=== PATIENT | female | born 1950 | race Caucasian/White ===

== ENCOUNTER → 2017-12-22 | Outpatient (CLI) | payer MEDICARE ==
--- NOTE | 2017-12-22 15:02 | US ---
EXAMINATION TYPE: US thyroid st tissue head/neck DATE OF EXAM: 12/22/2017 COMPARISON: 01/07/2016 CLINICAL HISTORY: E04.1 Thyroid Nodule. GLAND SIZE: Right Lobe: 4.9 x 1.7 x 1.7cm Overall Parenchyma: homogenous Left Lobe: 5.0 x 2.0 x 2.0 cm Overall Parenchyma: homogeneous Isthmus Thickness: 0.2 cm NODULES RIGHT: # of nodules measured on right: 1 1. 0.9 X 0.8 x 0.7 cm echogenic solid nodule at the lower pole with well-defined margins; . This n odule is taller than wide and shows no intranodular vascularity. Prior size: 0.7 x 0.6 x 0.6 cm LEFT: # of nodules measured on left: 1 1. 2.3 X 1.8 x 1.9 cm hypoechoic solid nodule at the mid pole with well-defined margins; . This no dule is wider than tall and shows intranodular vascularity. Prior size: 2.4 x 1.6 x 1.7 cm ISTHMUS: # of nodules measured in the isthmus: 0 Bilateral neck scanned, no evidence of lymphadenopathy. IMPRESSION: Stable nonspecific thyroid nodularity.
== END | disposition home or self-care (01) ==
LOC: RADUSWWP 14:17
PROVIDERS: ATTEND Family Medicine
DX: E04.2 Nontoxic multinodular goiter (principal)
CPT/HCPCS: 76536

== ENCOUNTER → 2018-01-17 | Outpatient (CLI) | payer MEDICARE | END | disposition home or self-care (01) | LOC: LABWHC1 11:58 | PROVIDERS: ATTEND Otolaryngology | DX: E04.1 Nontoxic single thyroid nodule (principal) | CPT/HCPCS: 36415; 84439; 86376 ==

== ENCOUNTER 2018-03-31 11:57 | Day surgery (SDC) | payer MEDICARE ==
[2018-03-31 12:25] VITALS: TEMP 97.7
[2018-03-31 13:08] VITALS: BP 123/69; PULSE 58; RESP 18
--- NOTE | 2018-03-31 13:34 | US ---
ULTRASOUND GUIDED FNA THYROID BIOPSY: CLINICAL HISTORY: Left thyroid nodule FINDINGS: The procedure was explained to the patient. The risks, complications, benefits and alternatives were discussed and any questions were answered. Informed consent was obtained. Patient was placed supin e on the ultrasound table and prepped and draped in the usual sterile fashion. Utilizing a 25 gauge needle, five passes were made into the requested left thyroid nodule. Patient was stable throughout the procedure. Pathology is pending. All elements of maximal barrier technique were utilized. IMPRESSION: 1. Successful ultrasound guided FNA thyroid biopsy.
== END 2018-03-31 13:15 | disposition home or self-care (01) ==
LOC: RADPROMAIN 11:57
PROVIDERS: ATTEND Otolaryngology
DX: E04.1 Nontoxic single thyroid nodule (principal)
CPT/HCPCS: 10022; 76942; 88173; 88305

== ENCOUNTER → 2018-10-06 | Outpatient (CLI) | payer MEDICARE ==
--- NOTE | 2018-10-06 14:21 | MR ---
EXAMINATION TYPE: MR knee RT wo con DATE OF EXAM: 10/06/2018 COMPARISON: NONE HISTORY: Pain in right knee per order. Pain and swelling since mid June per patient. TECHNIQUE: Multiplanar, multisequence images of the knee is performed without IV contrast. FINDINGS: Posterior horn shows oblique increased signal extends to inferior articular surface sagittal image 9 MEDIAL MENISCUS: Anterior horn is intact without tear. LATERAL MENISCUS: Anterior and posterior horns are intact without tear. CRUCIATE LIGAMENTS: The anterior and posterior cruciate ligaments are intact and unremarkable. COLLATERAL LIGAMENTS: The medial collateral ligament and lateral collateral ligament complex are inta ct. Mild increased fluid signal surrounds medial collateral ligament mid to distal fibers coronal claude ge 17. EXTENSOR MECHANISM: Visualized quadriceps and patellar tendons are intact. EFFUSION: No significant suprapatellar joint effusion. POPLITEAL CYST: There is small popliteal/flynn cyst axial image 9. TRICOMPARTMENT SPACES: Mild to moderate narrowing medial lateral tibiofemoral compartment is present. No significant spurring is seen. CARTILAGE: Some thinning of articular cartilage medial tibiofemoral compartment is noted. BONE MARROW SIGNAL: No focal abnormal marrow signal is appreciated. OTHER: No additional significant abnormality is appreciated. IMPRESSION: 1. Full-thickness tear posterior horn of medial meniscus. 2. Mild MCL sprain injury. 3. Mild to moderate tricompartment degenerative changes most prominent medial tibiofemoral compartmen t presumed product of osteoarthritis. 4. Small popliteal cyst.
== END | disposition home or self-care (01) ==
LOC: RADMRIMAIN 13:24
PROVIDERS: ATTEND Orthopaedic Surgery
DX: S83.241A Other tear of medial meniscus, current injury, right knee, initial encounter (principal); S83.411A Sprain of medial collateral ligament of right knee, initial encounter; M71.21 Synovial cyst of popliteal space [Baker], right knee; M17.11 Unilateral primary osteoarthritis, right knee

== ENCOUNTER → 2018-10-13 | Outpatient (CLI) | payer MEDICARE ==
[2018-10-13 10:45] LABS: Blood Urea Nitrogen 23 mg/dL (7-17)
--- NOTE | 2018-10-13 13:07 | CT ---
EXAMINATION TYPE: CT abdomen pelvis w con DATE OF EXAM: 10/13/2018 COMPARISON: Ultrasound 816 HISTORY: Unspecified abdominal pain CT DLP: 1467 mGycm Automated exposure control for dose reduction was used. CONTRAST: CT scan of the abdomen pelvis is performed with IV Contrast, patient injected with 100 ml mL of Isovu e 300. FINDINGS- LUNG BASES-lung bases are clear. Heart size is prominent.. LIVER/GB-there are multiple hypodensities within the liver the largest is seen within the left lobe o f the liver measuring 4.2 cm and 4 Hounsfield units compatible simple cysts. No obvious gallstones.. PANCREAS- No gross abnormality is seen. SPLEEN- No gross abnormality is seen. ADRENALS- No gross abnormality is seen. KIDNEYS/BLADDER- no hydronephrosis nephrolithiasis or renal mass. BOWEL-bowel gas pattern nonspecific. Within the gastric fundus on the sagittal and axial views there appears to be a hyperdense structure which is contiguous with the stomach suggestive of a gastric div erticulum measuring 1.7 cm.. LYMPH NODES- No greater than 1cm abdominal or pelvic lymph nodes areappreciated. OSSEOUS STRUCTURES-hypertrophic and degenerative changes of vertebral column.. OTHER- fat-containing periumbilical hernia. No free fluid or free air. IMPRESSION- 1. Small gastric fundal diverticulum. 2. Hepatic simple appearing cysts 3. Fat-containing periumbilical hernia
== END | disposition home or self-care (01) ==
LOC: RADCTMAIN 09:38
PROVIDERS: ATTEND Family Medicine
DX: K31.4 Gastric diverticulum (principal); K76.89 Other specified diseases of liver; K42.9 Umbilical hernia without obstruction or gangrene; R14.0 Abdominal distension (gaseous); K21.9 Gastro-esophageal reflux disease without esophagitis
CPT/HCPCS: 82565; 84520; 74177; 36415; Q9967 ×2

== ENCOUNTER 2018-11-17 10:43 | Day surgery (SDC) | payer MEDICARE ==
[2018-11-13 15:27] VITALS: BMI 31.1
--- NOTE | 2018-11-16 09:01 | HP ---
HISTORY AND PHYSICAL CHIEF COMPLAINT: Right knee pain. HISTORY OF PRESENT ILLNESS: The patient is a 68-year-old female who presents with progressive right knee pain after an injury in June of this year. She notes intermittent locking and giving way. She is having pain with normal activities that limits her significantly. She has tried medications without much relief. PAST MEDICAL HISTORY: Significant for thyroid disease, hypertension, and hypercholesterolemia. PAST SURGICAL HISTORY: Significant for sinus surgery and tonsillectomy. CURRENT MEDICATIONS: 1. Aspirin. 2. Lisinopril. 3. Simvastatin. 4. Valtrex. ALLERGIES: She denies drug allergies. FAMILY HISTORY: Family history is noncontributory. SOCIAL HISTORY: Social history is negative for current tobacco or alcohol use. REVIEW OF SYSTEMS: Sixteen-point review of systems otherwise reviewed and is noncontributory. PHYSICAL EXAMINATION: On examination, the patient is approximately 5 feet 5 inches, 194 pounds mesomorphic habitus. HEENT exam is nonfocal. Neck is supple. She has painless passive motion of the right hip. Straight leg raise is negative. Active motion right knee -8 to 130 degrees of flexion. She has a mild effusion. She is tender about the medial joint line. Collaterals are stable, Bryan is negative, Chai's elicits medial pain. Her distal neurovascular exam appears to be intact in the right lower extremity. MRI report 10/06/2018 of the right knee shows a posterior medial meniscal tear along with degenerative changes involving the medial compartment. IMPRESSION: Internal derangement right knee with symptomatic medial meniscal tear. RECOMMENDATIONS: I talked to the patient at length regarding her condition along with treatment options. At this point, she notes significant pain and mechanical symptoms that limit her. After thorough discussion, she opts to proceed with surgery. We will plan to proceed with arthroscopic evaluation with possible partial medial meniscectomy. Risks and benefits were discussed at length in layman's terms. We will likely perform that as an outpatient procedure. MMODL / IJN: [id number] /
[~2018-11-17 10:43] MED LIST: DEXAMETHASONE SOD PHOSPHATE 10 MG/ML 1 ML VIAL IV ONE; LACTATED RINGERS 1,000 ML IV SCH; MIDAZOLAM 2 MG/2 ML VIAL IV PRN; ONDANSETRON 4 MG/2 ML VIAL IVP ONE; ceFAZolin IN SWFI 2 GM/20 ML SYRINGE IVP ONE
[2018-11-17 11:07] VITALS: RESP 16
[2018-11-17 11:13] LABS: Glucose,Whole Blood 70 mg/dL (75-99)
[2018-11-17] MEDS ORDERED: fentaNYL (PF) 50 MCG/ML 2 ML AMP ONE (12:38)
[2018-11-17] MEDS ORDERED: ePHEDrine SULFATE/0.9% NACL/PF 50 MG/5 ML SYRINGE IV ONE (12:38)
[2018-11-17] MEDS ORDERED: PROPOFOL 10 MG/ML 20 ML VIAL IV ONE (12:38)
[2018-11-17] MEDS ORDERED: MIDAZOLAM 2 MG/2 ML VIAL ONE (12:38)
[2018-11-17] MEDS ORDERED: LIDOCAINE 1% INJ 10MG/ML (20 ML MDV) ONE (12:38)
[2018-11-17] MEDS ORDERED: SUCCINYLCHOLINE CHLORIDE 100 MG/5 ML SYR IV ONE (12:38)
[2018-11-17] MEDS ORDERED: EPINEPHrine (PF) 1 ML in SODIUM CHLORIDE 0.9% IRRIGATIO 3,000 ML IRRIGATION ONE ×4 (12:58)
--- NOTE | 2018-11-17 13:28 | P.OP ---
Date of Procedure: 11/17/18 Preoperative Diagnosis: Right knee medial meniscal tear Postoperative Diagnosis: Right knee posterior medial meniscal tear/reactive synovitis of the medial, lateral, and patellofemoral compartments. Procedure(s) Performed: Right knee arthroscopic partial medial meniscectomy/partial synovectomy of the medial, lateral, and patellofemoral compartments. Anesthesia: MICHELA Surgeon: Grey Bernal Estimated Blood Loss (ml): 10 Pathology: none sent Condition: stable Disposition: PACU Indications for Procedure: The patient's a 68-year-old female presents with progressive right knee pain and mechanical symptoms despite conservative measures. A discussion the risks and benefits of operative intervention versus continued conservative measures was made with the patient. She opted to proceed with surgery. Operative risks to include infection, neurovascular injury, development of blood clots, possible incomplete resolution of symptoms, possible worsening symptoms and need for subsequent procedures was discussed. Informed consent was obtained. Operative Findings: As below Description of Procedure: The patient was brought to the operating room, and after induction of general anesthesia examined the right knee. Collaterals were stable, Bryan was negative, and posterior drawer was negative. The right lower extremity was prepped and draped in a normal fashion. A superior lateral portal was made through a 3 mm skin incision superior and lateral to the patella. This was used for outflow. A lateral portal was made through a 5 mm vertical skin incision lateral to the patella tendon above the joint line. Diagnostic arthroscopy was performed. On inspection of the medial compartment, a complex tear involving the posterior horn of the medial meniscus in the white-red junction was noted. This was debrided back to stable base with straight baskets and a motorized shaver. Reactive synovitis involving anterior medial compartment was debrided with a motorized shaver. On inspection of the notch, the anterior cruciate ligament appeared to be intact. On inspection of the lateral compartment, no significant meniscal pathology was noted. Reactive synovitis involving anterolateral compartment was drilled with a motorized shaver.. On inspection of the patellofemoral articulation, there was chondral fibrillation however no loose chondral fragments. Reactive synovitis was debrided with a motorized sha munira.. The gutters were clear debris. The knee was then thoroughly irrigated. The portals were closed with Steri-Strips. A sterile dressing was applied in addition to a compression stocking. The patient was awoken from general anesthesia and transferred to recovery room in good condition. Blood loss was estimated at 10 mL. No complications were incurred.
[2018-11-17 13:38] VITALS: TEMP 98
[2018-11-17] MEDS: HYDROmorphone 0.5 MG/0.5 ML SYRINGE IVP PRN ×3 (14:08→14:46)
[2018-11-17] MEDS ORDERED: LACTATED RINGERS 1,000 ML IV ONE (14:23)
[2018-11-17 15:44] VITALS: BP 106/70; PULSE 86
== END 2018-11-17 16:10 | disposition home or self-care (01) ==
LOC: OR 10:43
PROVIDERS: ATTEND Orthopaedic Surgery
DX: S83.241A Other tear of medial meniscus, current injury, right knee, initial encounter (principal); X58.XXXA Exposure to other specified factors, initial encounter; M65.861 Other synovitis and tenosynovitis, right lower leg; E07.9 Disorder of thyroid, unspecified; I10 Essential (primary) hypertension; E78.5 Hyperlipidemia, unspecified; K21.9 Gastro-esophageal reflux disease without esophagitis; E78.00 Pure hypercholesterolemia, unspecified; Z79.82 Long term (current) use of aspirin; Z79.899 Other long term (current) drug therapy
CPT/HCPCS: 29881; 29876; J2250; J1100; J2405; J0171; J2001; J3010; J0330; J2704; J1170; J0690

== ENCOUNTER 2019-03-22 09:00 | Day surgery (SDC) | payer MEDICARE ==
[2019-03-22 10:33] VITALS: RESP 16; TEMP 97.6
[2019-03-22 10:34] VITALS: BP 119/76; PULSE 60
--- NOTE | 2019-03-22 11:00 | US ---
EXAMINATION TYPE: US FNA thyroid first lesion DATE OF EXAM: 03/22/2019 COMPARISON: NONE HISTORY: Thyroid nodule, E04.1 Maximal barrier technique was utilized. Ultrasound using sterile technique. The skin overlying the le ft sided thyroid nodule was localized with ultrasound and the overlying skin prepped and draped. Lido bucky used for local anesthesia. 5 passes with a 25-gauge needle were made into the nodule under ultr asound guidance. Aspirate specimen submitted to cytology. Following the procedure hemostasis achieved . No immediate complication IMPRESSION: Status post ultrasound-guided fine-needle aspiration of thyroid nodule, pathology pending .
== END 2019-03-22 10:30 | disposition home or self-care (01) ==
LOC: RADPROMAIN 09:00
PROVIDERS: ATTEND Otolaryngology
DX: E04.1 Nontoxic single thyroid nodule (principal)
CPT/HCPCS: 10005; 88173; 88305

== ENCOUNTER → 2020-07-18 | Outpatient (CLI) | payer MEDICARE ==
--- NOTE | 2020-07-18 14:31 | BD ---
EXAMINATION TYPE: Axial Bone Density DATE OF EXAM: 07/18/2020 COMPARISON: NONE CLINICAL HISTORY: Height: 64.5 Weight: 195.8 FRAX RISK QUESTIONS: Alcohol (3 or more units per day): no Family History (Parent hip fracture): no Glucocorticoids (More than 3mos): no (Ex: prednisone, prednisolone, methylprednisolone, dexamethasone, and hydrocortisone). History of Fracture in Adulthood: no Secondary Osteoporosis: 1. Type 1 Diabetes: no 2. Hyperthyroidism: no 3. Menopause before 45: no 4. Malnutrition: no 5. Chronic liver disease: no Rheumatoid Arthritis: no Current Tobacco Use: no RISK FACTORS HISTORY OF: Family History of Osteoporosis: Active: no Diet low in dairy products/other sources of calcium: no Postmenopausal woman: age 52 Lost more than 2 inches in height since high school: no MEDICATIONS: wellbutrin, lexapro, valtrex, aspirin, simvastatin, lisinopril Additional History: EXAM MEASUREMENTS: Bone mineral densitometry was performed using the Zorap System. Bone mineral density as measured about the Lumbar spine is: ----- L1-L4(G/cm2): 1.223 T Score Values are as follows: ----- L2: 0.0 ----- L3: 1.3 ----- L4: 0.1 ----- L1-L4: 0.4 Bone mineral density : baseline Bone mineral density about the R hip (g/cm2): 0.889 Bone mineral density about the L hip (g/cm2): 0.831 T Score values are as follows: -----R Neck: -1.1 -----L Neck: -1.5 -----R Total: -0.1 -----L Total: -0.3 Bone mineral density : baseline IMPRESSION: Osteopenia (T Score between -2.5 and -1). There is slightly increased risk of fracture and the patient may be considered for treatment. Re-Screen 2-5 years. NOTE: T-SCORE=SD OF THE YOUNG ADULT MEAN.
--- NOTE | 2020-07-22 09:14 | MM ---
Reason for exam: screening (asymptomatic). Last mammogram was performed 1 year and 2 months ago. History: Patient is postmenopausal. Physical Findings: A clinical breast exam by your physician is recommended on an annual basis and results should be correlated with mammographic findings. MG 3D Screening Mammo W/Cad Bilateral CC and MLO view(s) were taken. Prior study comparison: May 07, 2019, mammogram, performed at [place]. April 10, 2018, mammogram, performed at [place]. There are scattered fibroglandular densities. There is chronic nodularity bilaterally. No significant changes when compared with prior studies. ASSESSMENT: Benign, BI-RAD 2 RECOMMENDATION: Routine screening mammogram of both breasts in 1 year.
== END | disposition home or self-care (01) ==
LOC: RADMAMWWP 11:03
PROVIDERS: ATTEND Family Medicine
DX: Z12.31 Encounter for screening mammogram for malignant neoplasm of breast (principal); M85.80 Other specified disorders of bone density and structure, unspecified site; Z78.0 Asymptomatic menopausal state
CPT/HCPCS: 77063; 77067; 77080

== ENCOUNTER → 2020-07-18 | Outpatient (CLI) | payer MEDICARE ==
--- NOTE | 2020-07-18 12:22 | XR ---
EXAM TYPE: LUMBAR SPINE X RAY SERIES COMPARISON: NONE HISTORY: Pain TECHNIQUE: 4 views are submitted. FINDINGS: Alignment is anatomic. The pedicles are intact. The transverse processes are intact. There is a cu rvature of the spine with multilevel degenerative disc disease and hypertrophic spurring. Vacuum disc noted at multiple levels compatible severe degenerative disc disease. No compression deformities. IMPRESSION: 1. Multilevel severe degenerative disc disease.
--- NOTE | 2020-07-18 12:31 | US ---
EXAMINATION TYPE: US venous doppler duplex LE DATE OF EXAM: 07/18/2020 11:34 AM COMPARISON: NONE CLINICAL HISTORY: M79.606 Pain in leg. Left leg palpable area posterior left knee SIDE PERFORMED: Left TECHNIQUE: The lower extremity deep venous system is examined utilizing real time linear array sonog rola with graded compression, doppler sonography and color-flow sonography. VESSELS IMAGED: Common Femoral Vein Deep Femoral Vein Greater Saphenous Vein * Femoral Vein Popliteal Vein Small Saphenous Vein * Proximal Calf Veins (* superficial vessels) Left Leg: Negative for DVT Enriquez's cyst visualized measuring 2.6 x 0.6 x 1.0 cm. No abnormality visualized at the patient's area of palpable lump IMPRESSION: 1. Left lower extremity ultrasound negative for deep venous thrombosis. 2. Small popliteal cyst left posterior popliteal fossa
== END | disposition home or self-care (01) ==
LOC: RADUSWWP 11:05
PROVIDERS: ATTEND Family Medicine
DX: M51.36 Other intervertebral disc degeneration, lumbar region (principal); M71.22 Synovial cyst of popliteal space [Baker], left knee
CPT/HCPCS: 72100

== ENCOUNTER → 2021-11-18 | Outpatient (CLI) | payer MEDICARE, OTHER ==
--- NOTE | 2021-11-18 11:49 | MR ---
EXAMINATION TYPE: MR lumbar spine wo con DATE OF EXAM: 11/18/2021 COMPARISON: NONE HISTORY: Low back pain into left buttocks TECHNIQUE: T1 and T2 axial and sagittal images of the lumbar spine are submitted. FINDINGS: There is no abnormal signal seen within the visualized spinal cord or paraspinal soft tissu es. Scoliosis with multilevel At L1-2 there is degenerative disc small focal left paracentral disc protrusion. No canal stenosis or foraminal At L2-3 there is severe degenerative disc disease and broad-based left paracentral disc. Mild effacem ent of the thecal sac. Mild left-sided foraminal encroachment. At L3-4 there is degenerative disc disease with hypertrophic changes and ligamentum flavum. No forami nal encroachment. No disc herniation At L4-5 there is degenerative disc disease with broad-based disc bulging. Facet arthropathy and ligam entum flavum. Moderate right and mild left foraminal borderline At L5-S1 there is disc desiccation with advanced facet arthropathy but no disc herniation or canal st enosis. Neural foramina remain patent IMPRESSION: 1. Tiny left paracentral disc protrusion L1-L2. 2. Scoliosis and multilevel degenerative disc disease with severe changes L2-L3. 3. Left paracentral broad-based disc fusion L2-L3 with mild flattening of thecal sac and mild left-si ded foraminal encroachment. 4. Broad-based disc bulging L4-L5 with hypertrophic changes resulting in bilateral foraminal encroach ment and borderline central stenosis. 5. Advanced facet arthropathy L5-S1.
== END | disposition home or self-care (01) ==
LOC: RADMRIMAIN 10:21
PROVIDERS: ATTEND Orthopaedic Surgery
DX: M51.26 Other intervertebral disc displacement, lumbar region (principal); M47.816 Spondylosis without myelopathy or radiculopathy, lumbar region; M48.061 Spinal stenosis, lumbar region without neurogenic claudication; M99.73 Connective tissue and disc stenosis of intervertebral foramina of lumbar region
CPT/HCPCS: 72148

== ENCOUNTER → 2022-03-17 | Outpatient (CLI) | payer MEDICARE, OTHER ==
--- NOTE | 2022-03-18 05:39 | MR ---
EXAMINATION TYPE: MR brain and iac wo/w con DATE OF EXAM: 03/17/2022 COMPARISON: None HISTORY: Pulsatile tinnitus left ear. CONTRAST: Standard multiplanar, multisequence MRI departmental protocol images were obtained without contrast a nd with 8.5 mL intravenous Gadavist gadolinium contrast. The diffusion images show no evidence of an acute infarct. Ventricles have fairly normal size. There is no mass effect nor midline shift. There is no sign of intracranial hemorrhage. There is mild cereb ral atrophy. The brainstem is intact. Corpus callosum is intact. Sella turcica appears normal. No evidence of orbi rocky mass. The internal auditory canals appear normal. The acoustic nerve and vestibular nerve appear normal. Te mporal bones have normal signal pattern with no evidence of mastoiditis. No evidence of a posterior f manuel mass. There is normal enhancement of the venous sinuses. No pathologic intracranial enhancement. IMPRESSION: Negative MRI scan of the brain. Mild atrophy appropriate for age. I do not see a cause for pulsatile tinnitus.
--- NOTE | 2022-03-18 06:29 | MR ---
EXAMINATION TYPE: MR angio head wo con DATE OF EXAM: 03/17/2022 COMPARISON: NONE HISTORY: Pulsatile tinnitus left ear. TECHNIQUE: Time of flight images focusing on the [place] were performed without contrast.. 2-D and 3-D postprocessing imaging is performed on MRI scanner. FINDINGS: Codominant vertebral arteries patent to the basilar junction. Patent bilateral posterior co mmunicating arteries. No significant focal stenosis or aneurysm in the posterior circulation. There i s a small caliber tortuous vessel originating from the vertebral artery in the region of the right ve stibular cochlear complex for reference axial images 67 through 74 incidentally noted as patient does not have right-sided complaints. Patent anterior communicating artery with larger caliber left A2 segment. No significant focal stenos is or aneurysm in the anterior circulation. IMPRESSION: No aneurysm at the level of the [place].
--- NOTE | 2022-03-18 06:29 | MR ---
EXAMINATION TYPE: MR angio head wo con DATE OF EXAM: 03/17/2022 COMPARISON: NONE HISTORY: Pulsatile tinnitus left ear. TECHNIQUE: Time of flight images focusing on the [place] of [place] were performed without contrast.. 2-D and 3-D postprocessing imaging is performed on MRI scanner. FINDINGS: Codominant vertebral arteries patent to the basilar junction. Patent bilateral posterior co mmunicating arteries. No significant focal stenosis or aneurysm in the posterior circulation. There i s a small caliber tortuous vessel originating from the vertebral artery in the region of the right ve stibular cochlear complex for reference axial images 67 through 74 incidentally noted as patient does not have right-sided complaints. Patent anterior communicating artery with larger caliber left A2 segment. No significant focal stenos is or aneurysm in the anterior circulation. IMPRESSION: No aneurysm at the level of the [place].
== END | disposition home or self-care (01) ==
LOC: RADMRIMAIN 16:26
PROVIDERS: ATTEND Otolaryngology
DX: H93.3X9 Disorders of unspecified acoustic nerve (principal)
CPT/HCPCS: 70544; 70553; A9585

== ENCOUNTER 2024-05-07 03:47 | Inpatient (IN) | payer MEDICARE ==
[2024-05-07 04:30] LABS: Basophils # (A) 0.1 k/uL (0-0.2); Basophils % (A) 1 %; Eosinophils # (A) 0.4 k/uL (0-0.7); Eosinophils % (A) 6 %; HCT 35.9 % (34.0-46.0); HGB 11.9 gm/dL (11.4-16.0); Lymphocytes # (A) 2.3 k/uL (1.0-4.8); Lymphocytes % (A) 31 %; MCH 31.7 pg (25.0-35.0); MCV 96.1 fL (80.0-100.0); Mean Platelet Volume 7.9; Monocytes # (A) 0.5 k/uL (0-1.0); Monocytes % (A) 7 %; Neutrophils # (A) 3.8 k/uL (1.3-7.7); Neutrophils % (A) 52 %; Platelet Count 240 k/uL (150-450); RBC 3.74 m/uL (3.80-5.40); RDW 13.8 % (11.5-15.5); WBC 7.3 k/uL (3.8-10.6)
[2024-05-07 04:40] LABS: INR 0.9 (<1.2); Prothrombin Time 10.5 sec (10.0-12.5)
[2024-05-07 04:48] LABS: ALT 14 U/L (4-34); AST 30 U/L (14-36); African American GFR (CKD) >90 (>60 ml/min/1.73 sqM); Alkaline Phosphatase 79 U/L (38-126); Anion Gap 5 mmol/L; Blood Urea Nitrogen 24 mg/dL (7-17); Calcium 9.1 mg/dL (8.4-10.2); Carbon Dioxide 25 mmol/L (22-30); Chloride 110 mmol/L (98-107); Glucose 123 mg/dL (74-99); Magnesium 2.1 mg/dL (1.6-2.3); Non-African American GFR(CKD) 85 (>60 ml/min/1.73 sqM); Potassium 3.8 mmol/L (3.5-5.1); Sodium 140 mmol/L (137-145); Total Bilirubin 0.5 mg/dL (0.2-1.3); Total Protein 6.4 g/dL (6.3-8.2)
--- NOTE | 2024-05-07 05:37 | ED ---
Chest Pain HPI - General Chief Complaint: Chest Pain Stated Complaint: Chest Pain Time Seen by Provider: 05/07/24 04:41 Source: EMS Mode of arrival: EMS Limitations: no limitations - History of Present Illness Initial Comments: Patient is a 73-year-old woman who presents to evaluation for chest pain. She arrives as a transfer from [facility]. Patient states that she had been awakened from sleep by chest pain approximately 11 PM. She had been feeling fine when she went to bed but was awakened by a heavy sensation in the upper chest that radiated to her back, neck and both axilla. She went to the other facility, she received nitroglycerin, aspirin, was started on heparin and transferred here. The patient's labs and EKG nondiagnostic. The patient states that the pain has now resolved. Did have elevated D-dimer at 1.[address] angiogram was performed. MD Complaint: chest pain Onset/Timin -: hour(s) Onset: during rest, awoke with symptoms Pain Location: substernal Pain Radiation: RUE, LUE, back, neck Severity: severe Quality: heaviness Consistency: now resolved Improves With: nitroglycerin Worsens With: nothing Treatments Prior to Arrival: aspirin, nitroglycerin, oxygen, other - Related Data Home Medications Medication Instructions Recorded Confirmed Aspirin [Adult Low Dose Aspirin EC] 81 mg PO DAILY 04/12/16 05/12/24 valACYclovir HCL [Valtrex] 500 mg PO DAILY 04/12/16 05/12/24 lisinopriL [Zestril] 5 mg PO HS 03/31/18 05/12/24 Vitamin C/Biotin [Hair, Skin and 1 tab PO DAILY 11/13/18 05/12/24 Nails Chew] Calcium Carbonate [Calcium] 600 mg PO HS 05/07/24 05/12/24 Cholecalciferol [Vitamin D3 (25 25 mcg PO DAILY 05/07/24 05/12/24 Mcg = 1000 Iu)] Escitalopram [Lexapro] 5 mg PO Q2D@209905/07/24 05/12/24 [place]-3/Dha/Epa/Fish Oil [Fish Oil 1 cap PO HS 05/07/24 05/12/24 1,000 mg Softgel] Rosuvastatin [Crestor] 10 mg PO Q2D@209905/07/24 05/12/24 Previous Rx's Medication Instructions Recorded Metoprolol Succinate (ER) [Toprol 12.5 mg PO DAILY 30 Days #30 tab 05/09/24 XL] Allergies Allergy/AdvReac Type Severity Reaction Status Date / Time No Known Allergies Allergy Verified 05/12/24 17:09 Review of Systems ROS Statement: Those systems with pertinent positive or pertinent negative responses have been documented in the HPI. ROS Other: All systems not noted in ROS Statement are negative. Constitutional: Denies: fever, chills, weakness Respiratory: Denies: cough, dyspnea, wheezes, hemoptysis Cardiovascular: Reports: chest pain. Denies: palpitations, orthopnea, edema, syncope Gastrointestinal: Denies: abdominal pain, nausea, vomiting, diarrhea, melena, hematochezia Genitourinary: Denies: dysuria, hematuria Musculoskeletal: Denies: back pain Skin: Denies: rash Neurological: Denies: headache, weakness, numbness EKG Findings - EKG Results: EKG: interpreted by ERMD, sinus rhythm (Rate 65 bpm) - Blocks, [place], Hypertrophy, ST Abn: QRS axis and voltage: low voltage (<0.5 MV total QRS and <1.0 MV in each precordial lead) Chamber hypertrophy or enlargement: only voltage criteria for left ventricular hypertrophy Repolarization changes or abnormalities: nonspecific abnormality, ST segment, and/or T wave Past Medical History Past Medical History: GERD/Reflux, Hyperlipidemia, Hypertension, Myocardial Infarction ([place]), Osteoarthritis (OA), Pneumonia, Thyroid Disorder Additional Past Medical History / Comment(s): Hx of HSV, ischemic neuropathy of left eye, ischemic stroke right eye, thyroid nodules. "Minor heart attacks, vasospasms 2008 and 2010." Small aortic aneurysym, checked 1 month ago and stable. Hx Pneumonia. Last Myocardial Infarction Date:: 2010 History of Any Multi-Drug Resistant Organisms: None Reported Past Surgical History: Adenoidectomy, Tonsillectomy Additional Past Surgical History / Comment(s): COLONOSCOPY, thyroid biopsy, right knee miniscus repair Past Anesthesia/Blood Transfusion Reactions: No Reported Reaction Additional Past Anesthesia/Blood Transfusion Reaction / Comment(s): no past blood transfusion Past Psychological History: Depression Past Alcohol Use History: Occasional Past Drug Use History: None Reported - Past Family History Mother Family Medical History: Unable to Obtain Additional Family Medical History / Comment(s): ADOPTED General Exam Limitations: no limitations General appearance: alert, in no apparent distress Head exam: Present: atraumatic, normocephalic Eye exam: Present: normal appearance. Absent: scleral icterus, conjunctival injection ENT exam: Present: normal oropharynx Neck exam: Present: normal inspection Respiratory exam: Present: normal lung sounds bilaterally. Absent: respiratory distress, wheezes, rales, rhonchi, stridor, accessory muscle use Cardiovascular Exam: Present: regular rate, normal rhythm, normal heart sounds. Absent: systolic murmur, diastolic murmur, rubs, gallop GI/Abdominal exam: Present: soft. Absent: distended, tenderness, guarding, rebound, rigid, mass Extremities exam: Present: normal inspection, normal capillary refill. Absent: pedal edema, calf tenderness Back exam: Present: normal inspection Neurological exam: Present: alert Skin exam: Present: warm, dry, intact, normal color. Absent: rash Course Vital Signs 05/07/24 05/07/24 05/07/24 04:08 05:39 06:52 Temperature 97.5 F L Pulse Rate 63 62 66 Respiratory 18 16 18 Rate Blood Pressure 159/86 130/65 141/88 O2 Sat by Pulse 98 99 97 Oximetry Chest Pain MDM - MDM Was pt. sent in by a medical professional or institution (, PA, DISTRIBUTION ASSOCIATE, urgent care, hospital, or retirement...) When possible be specific @ -[Patient is transferred from outside hospital to have further cardiology evaluation Did you speak to anyone other than the patient for history (EMS, parent, family, police, friend...)? What history was obtained from this source @ -[No] Did you review nursing and triage notes (agree or disagree)? Why? @ -[I reviewed and agree with nursing and triage notes] Were old charts reviewed (outside hosp., previous admission, EMS record, old EKG, old radiological studies, urgent care reports/EKG's, retirement records)? Report findings @ -[The transfer records were reviewed] Differential Diagnosis (chest pain, altered mental status, abdominal pain women, abdominal pain men, vaginal bleeding, weakness, fever, dyspnea, syncope, headache, dizziness, GI bleed, back pain, seizure, CVA, palpatations, mental health, musculoskeletal)? @ -[Differential Chest Pain: Stable Angina, Unstable Angina, STEMI, NSTEMI Aortic Dissection, Pneumothorax, Musculoskeletal, Esophageal Spasm GERD, Cholecystitis, Pancreatitis, Zoster, this is not meant to be an all-inclusive list. EKG interpreted by me (3pts min.). @ -[I interpreted as above] X-rays interpreted by me (1pt min.). @ - CT interpreted by me (1pt min.). @ -[None done] U/S interpreted by me (1pt. min.). @ -[None done] What testing was considered but not performed or refused? (CT, X-rays, U/S, labs)? Why? @ -[None] What meds were considered but not given or refused? Why? @ -[None] Did you discuss the management of the patient with other professionals (corrie vazquez i.e. , PA, DISTRIBUTION ASSOCIATE, lab, RT, psych nurse, psychologist social, composition molder, teacher, special skills officer, case checker)? Give summary @ -[Case discussed with admitting physician and treatment recommendations incorporated Was smoking cessation discussed for >3mins.? @ -[No] Was critical care preformed (if so, how long)? @ -[No] Were there social determinants of health that impacted care today? How? (Home lessness, low income, unemployed, alcoholism, drug addiction, transportation, low edu. Level, literacy, decrease access to med. care, [facility], rehab)? @ -[No] Was there de-escalation of care discussed even if they declined (Discuss DNR or withdrawal of care, Hospice)? DNR status @ -[No] What co-morbidities impacted this encounter? (DM, HTN, Smoking, COPD, CAD, Cancer, CVA, ARF, Chemo, Hep., AIDS, mental health diagnosis, sleep apnea, morbid obesity)? @ -[Breast cancer Was patient admitted / discharged? Hospital course, mention meds given and route, prescriptions, significant lab abnormalities, going to OR and other pertinent info. @ -[Patient is 73-year-old woman with chest pain, there are some typical features and patient will be admitted to have further cardiology evaluation. Undiagnosed new problem with uncertain prognosis? @ -[No] Drug Therapy requiring intensive monitoring for toxicity (Heparin, Nitro, Insulin, Cardizem)? @ -[No] Were any procedures done? @ -[No] Diagnosis/symptom? @ -[Acute chest pain Acute, or Chronic, or Acute on Chronic? @ -[Acute Uncomplicated (without systemic symptoms) or Complicated (systemic symptoms)? @ -[Uncomplicated Side effects of treatment? @ -[No] Exacerbation, Progression, or Severe Exacerbation? @ -[No] Poses a threat to life or bodily function? How? (Chest pain, [place], [place], pneumonia, PE, COPD, DKA, ARF, appy, cholecystitis, CVA, Diverticulitis, Homicidal, Suicidal, threat to staff... and all critical care pts) @ -[Requires further cardiology evaluation Disposition Clinical Impression: Chest pain Disposition: ADMITTED IP TO THIS HOSP Condition: Stable Is patient prescribed a controlled substance at d/c from ED?: No
[2024-05-07] MEDS ORDERED: NITROGLYCERIN SL TABS 0.4 MG TAB SUBLINGUAL PRN (05:50)
[2024-05-07] MEDS: HEPARIN SOD,PORK IN 0.45% NACL 25,000 UNIT in 0.45% NACL 1 250ML.BAG IV SCH (07:47)
[2024-05-07] MEDS: NON FORMULARY DRUG (Vitamin C/Biotin [Hair, Skin And Nails Chew] 1 EACH Tab.Chew) PO SCH (09:37)
[2024-05-07] MEDS: HEPARIN SODIUM 1,000 UN/ML (10ML VL) IV PRN (09:39)
[2024-05-07] MEDS: ASPIRIN 81 MG PO SCH (09:40)
[2024-05-07] MEDS: valACYclovir HCL 500 MG TAB PO SCH (09:40)
--- NOTE | 2024-05-07 11:27 | P.CRDCN ---
History of Present Illness Consult date: 05/07/24 Consult reason: chest pain History of present illness: This is a 73-year-old female patient with past medical history of dyslipidemia, hypertension, recent diagnosis of breast cancer in January of this year status postlumpectomy done at [facility] and scheduled to start radiation therapy at [facility] today. We have been asked to evaluate the patient for chest pain. Patient states that she woke up at 1130 with chest pain. It was involving the axilla both sides as well as shoulder blades in the midsternal area. Patient was initially treated at [facility] started on heparin drip due to elevated D-dimer that came back at 1.03. Patient is scheduled for CTA of the chest that has not been done at this time. There is concern that the heparin drip was not running and this was [facility] and corrected. Blood pressure 144/73, heart rate 72, pulse ox 98% on room air. Patient does follow at [facility] in [place] for her cardiac workup. She thinks that she had an echocardiogram done about a month ago at [facility] as an outpatient. She has a known ascending aortic aneurysm which we will ask for evaluation of this with the CTA. -EKG: Sinus rhythm with no acute ST changes. -Laboratory studies: WBC 7.3, hemoglobin 11.9. Sodium 140, potassium 3.8, BUN 24 creatinine 0.72. Troponin 0.012, 0.051 and 0.065. Magnesium 2.1 -Home cardiac medications: Aspirin 81 mg daily, lisinopril 5 mg at bedtime, Crestor 10 mg every 2 days. Review Of Systems: At the time of my exam: CONSTITUTIONAL: Denies fever or chills. HEENT: Denies blurred vision, vision changes, or eye pain. Denies hemoptysis CARDIOVASCULAR: Denies chest pain. Denies orthopnea. Denies PND. Denies palpitations RESPIRATORY: Denies shortness of breath. GASTROINTESTINAL: Denies abdominal pain. Denies nausea or vomiting. HEMATOLOGIC: Denies bleeding disorders. GENITOURINARY: Denies any blood in urine. SKIN: Denies puritis. Denies rash. Physical examination: Gen: This is a 73-year-old female in no acute distress VS: reviewed HEENT: Head is atraumatic, normocephalic. Pupils equal, round. Sclerae is anict roxi. NECK: Supple. No JVD. LUNGS: Clear to auscultation. No wheezes or rhonchi. No intercostal r etractions. HEART: Regular rate and rhythm. No murmur. ABDOMEN: Soft No tenderness. EXTREMITIES: No pedal edema. No calf tenderness. NEUROLOGICAL: Patient is awake, alert and oriented x3. Assessment: Chest pain Elevated troponin of unclear significance Rule out PE with elevated D-dimer History of ascending aortic aneurysm Dyslipidemia Hypertension Recent diagnosis of breast cancer status postlumpectomy and scheduled for radiation therapy, patient declined chemotherapy Plan: Resume patient's home cardiac medications Continue patient on heparin drip Repeat troponins Obtain CTA of the chest to rule out PE and to evaluate ascending aortic aneurysm Obtain 2-D echocardiogram and Doppler study to assess cardiac structure and function Further recommendations to follow based upon clinical course Thank you kindly for this consultation. Nurse practitioner note has been reviewed, I agree with documented findings and plan of care. Patient was seen and examined. Past Medical History Past Medical History: GERD/Reflux, Hyperlipidemia, Hypertension, Myocardial Infarction ([place]), Osteoarthritis (OA), Pneumonia, Thyroid Disorder Additional Past Medical History / Comment(s): Hx of HSV, ischemic neuropathy of left eye, ischemic stroke right eye, thyroid nodules. "Minor heart attacks, vasospasms 2008 and 2010." Small aortic aneurysym, checked 1 month ago and stable. Hx Pneumonia. Last Myocardial Infarction Date:: 2010 History of Any Multi-Drug Resistant Organisms: None Reported Past Surgical History: Adenoidectomy, Tonsillectomy Additional Past Surgical History / Comment(s): COLONOSCOPY, thyroid biopsy, right knee miniscus repair Past Anesthesia/Blood Transfusion Reactions: No Reported Reaction Additional Past Anesthesia/Blood Transfusion Reaction / Comment(s): no past blood transfusion Past Psychological History: Depression Past Alcohol Use History: Occasional Past Drug Use History: None Reported - Past Family History Mother Family Medical History: Unable to Obtain Additional Family Medical History / Comment(s): ADOPTED Medications and Allergies Home Medications Medication Instructions Recorded Confirmed Type Aspirin [Adult Low Dose Aspirin EC] 81 mg PO DAILY 04/12/16 05/07/24 History valACYclovir HCL [Valtrex] 500 mg PO DAILY 04/12/16 05/07/24 History lisinopriL [Zestril] 5 mg PO HS 03/31/18 05/07/24 History Vitamin C/Biotin [Hair, Skin and 1 tab PO DAILY 11/13/18 05/07/24 History Nails] Calcium Carbonate [Calcium] 600 mg PO HS 05/07/24 05/07/24 History Cholecalciferol [Vitamin D3 (25 25 mcg PO DAILY 05/07/24 05/07/24 History Mcg = 1000 Iu)] Escitalopram [Lexapro] 5 mg PO Q2D@2100 05/07/24 05/07/24 History [place]-3/Dha/Epa/Fish Oil [Fish Oil 1 cap PO HS 05/07/24 05/07/24 History 1,000 mg Softgel] Rosuvastatin [Crestor] 10 mg PO Q2D@2100 05/07/24 05/07/24 History Allergies Allergy/AdvReac Type Severity Reaction Status Date / Time No Known Allergies Allergy Verified 05/07/24 06:42 Physical Exam Vitals: Vital Signs Temp Pulse Pulse Resp BP BP Pulse Ox 05/07/24 07:25 97.7 F 72 16 144/73 98 05/07/24 06:52 66 18 141/88 97 05/07/24 05:39 62 16 130/65 99 05/07/24 04:08 97.5 F L 63 18 159/86 98 Intake and Output 05/06/24 05/07/24 05/07/24 22:59 06:59 14:59 Other: Weight 89.811 kg Results 05/07/24 04:16 05/07/24 04:16 Cardiac Enzymes 05/07/24 05/07/24 05/07/24 Range/Units 04:16 04:16 07:42 AST 30 (14-36) U/L Troponin I <0.012 0.051 H* (0.000-0.034) ng/mL Coagulation 05/07/24 Range/Units 04:16 PT 10.5 (10.0-12.5) sec APTT 30.0 (22.0-30.0) sec CBC 05/07/24 Range/Units 04:16 WBC 7.3 (3.8-10.6) k/uL RBC 3.74 L (3.80-5.40) m/uL Hgb 11.9 (11.4-16.0) gm/dL Hct 35.9 (34.0-46.0) % Plt Count 240 (150-450) k/uL Comprehensive Metabolic Panel 05/07/24 Range/Units 04:16 Sodium 140 (137-145) mmol/L Potassium 3.8 (3.5-5.1) mmol/L Chloride 110 H (98-107) mmol/L Carbon Dioxide 25 (22-30) mmol/L BUN 24 H (7-17) mg/dL Creatinine 0.72 (0.52-1.04) mg/dL Glucose 123 H (74-99) mg/dL Calcium 9.1 (8.4-10.2) mg/dL AST 30 (14-36) U/L ALT 14 (4-34) U/L Alkaline Phosphatase 79 (38-126) U/L Total Protein 6.4 (6.3-8.2) g/dL Albumin 4.0 (3.5-5.0) g/dL Current Medications Generic Name Dose Route Start Last Admin Trade Name Freq PRN Reason Stop Dose Admin Aspirin 81 mg 05/07/24 09:00 Aspirin 81 Mg PO DAILY [facility] Atorvastatin Calcium 20 mg 05/07/24 21:00 Atorvastatin 20 Mg Tab PO Q2D@2100 [facility] Escitalopram Oxalate 5 mg 05/07/24 21:00 Escitalopram 5 Mg Tab PO Q2D@2100 [facility] Heparin Sodium (Porcine) 0 unit 05/07/24 05:52 Heparin Sodium 1,000 Un/Ml (10ml Vl) IV PER PROTOCOL PRN Low PTT Protocol Heparin Sodium/Sodium Chloride 250 mls @ 9.969 mls/hr 05/07/24 06:00 05/07/24 07:47 25,000 unit/ Sodium Chloride IV 11.1 units/kg/hr .Q24H [facility] 9.969 mls/hr Administration Protocol 11.1 UNITS/KG/HR Lisinopril 5 mg 05/07/24 21:00 Lisinopril 5 Mg Tab PO HS [facility] Nitroglycerin 0.4 mg 05/07/24 05:50 Nitroglycerin Sl Tabs 0.4 Mg Tab SUBLINGUAL Q5M PRN Chest Pain Non-Formulary Medication 1 tab 05/07/24 09:00 Vitamin C/Biotin [Hair, Skin And Nails Chew] PO DAILY [facility] Valacyclovir HCl 500 mg 05/07/24 09:00 Valacyclovir Hcl 500 Mg Tab PO DAILY [facility] Intake and Output 05/06/24 05/07/24 05/07/24 22:59 06:59 14:59 Other: Weight 89.811 kg 05/07/24 04:16 05/07/24 04:16
--- NOTE | 2024-05-07 12:17 | CT ---
EXAMINATION TYPE: CT angio chest DATE OF EXAM: 05/07/2024 COMPARISON: CLINICAL INDICATION: Female, 73 years old with history of eval ascending AA, r/o PE; [facility], TECHNIQUE: CTA scan of the thorax is performed with IV Contrast, patient injected with 100 mL of Isovue 370, pul monary embolism protocol. MIP images are created and reviewed. CT DLP: 1674.[address] CTDI: mGy Automated exposure control for dose reduction was used. FINDINGS: LUNGS: Mild emphysematous changes. No pneumothorax or pleural effusion. Groundglass changes posterior ly most likely related to respiratory motion artifact and dependent atelectasis. There is a 5 mm nodu le image 66 right upper lobe. Recommend 6 month follow-up. MEDIASTINUM: Maximal dimension of the thoracic aorta is 3.6 cm. There is a small pericardial effusion . There is a mediastinal adenopathy which is nonspecific. Central pulmonary arteries enhance normally . Third order and distal branches nondiagnostic. Cannot exclude pulmonary embolism in these distribut ions. This is secondary to artifact and suboptimal enhancement. The heart is enlarged. Trace of peric ardial fluid. OTHER: Multinodular thyroid changes. A left hepatic cyst incidentally noted measuring 15 Hounsfield units stable from prior exam. IMPRESSION: 1. NO EVIDENCE OF AORTIC ANEURYSM. 2. LIMITED EXAM FOR PULMONARY EMBOLISM DEMONSTRATES NO CENTRAL PULMONARY EMBOLISM. THIRD ORDER AND DI STAL BRANCHES ARE LIMITED DUE TO SUBOPTIMAL OPACIFICATION\ARTIFACT. 3. THERE IS MEDIASTINAL ADENOPATHY CORRELATE CLINICALLY. 4. THERE IS A 5 TO 6 MM NODULE RIGHT UPPER LOBE RECOMMEND 6 MON[address] FOLLOW-UP CT SCAN CHEST. [facility], , 05/07/2024 12:14 PM
--- NOTE | 2024-05-07 13:29 | P.HPIM ---
History of Present Illness H&P Date: 05/07/24 History of Presenting Illness: Patient is a very pleasant 73-year-old female past medical history of CAD, hypertension, hyperlipidemia, aortic aneurysm, depression, and recently diagnosed breast cancer status post right lumpectomy in January and was sched uled to begin radiation therapy today. She presented to the emergency department as a transfer from [facility] for cardiac workup as patient presented there with heaviness to midsternal chest radiating into her back between her shoulder blades and into her bilaterally axillary region. Patient reports pain with significant pressure and would not let up. She was given aspirin, nitroglycerin, and started on heparin infusion which resulted in resolution of patient's pain. Initial troponin was reported to be negative however patient did have elevated D-dimer of 1.03. Upon arrival to our facility, patient reported pain fully subsided and denied any other complaints. She underwent evaluation in our emergency department. Vital signs upon arrival show blood pressure 159/86, heart rate 63, respiratory rate 18, temp 97.5 F, and SpO2 of 90% on room air. EKG was completed showing normal sinus rhythm at 65 bpm with no significant T wave or ST abnormalities upon personal review and interpretation. Labs completed and reviewed. CBC unremarkable. Coagulation profile showing a subtherapeutic PTT of 30.0. BMP showing hyperchloremia with chloride of 110 and mild prerenal azotemia with BUN of 24. Blood glucose 123. Liver profile unremarkable. Initial troponin was negative at less than 0.012 with repeat troponi elevating to 0.051. Patient was admitted under services with consultation to cardiology. Review of systems: Pertinent positives and negatives as discussed in HPI, a complete review of systems was performed and all other systems are negative. Physical exam: Vital signs reviewed and stable. General: Nontoxic, no distress and appears stated age. Derm: Skin warm and dry, normal coloration for ethnicity. Head: Atraumatic, normocephalic and symmetric. Eyes: EOM's intact, no lid lag, and anicteric sclera Mouth: no lip lesions, mucus membranes moist Cardiovascular: regular rate and rhythm with normal S1S2, no murmur, positive posterior tibial pulses bilaterally, and cap refill < 2 seconds. Lungs: Respirations even, regular, and unlabored on room air. Lungs CTA bilaterally, no rhonchi, no rales, no wheezing, and no accessory muscle usage. Abdominal: soft, nontender to palpation, no guarding, no appreciable organomegaly Ext: ROM intact. No gross muscle atrophy, no edema, no contractures Neuro: Speech clear, face symmetrical and CN II-XII grossly intact with no noted focal neuro deficits Psych: Alert and oriented to person, place, time, and situation. Appropriate and pleasant affect. Assessment and Plan of Care: Chest pain, rule out acute coronary event Elevated troponin. Elevated D-dimer Aortic aneurysm Hypertension Hyperlipidemia History of CAD with reports of coronary artery vasospasms -Cardiology consulted, discussed plan of care in detail with programmer or analyst and cardiac INSTRUCTIONAL MEDIA SERVICES TECHNICIAN. -Patient to undergo CTA of chest to further evaluate aortic aneurysm and rule out PE. -Telemetry monitoring -Trend troponins -Aspirin 81 mg daily, atorvastatin 20 mg daily, lisinopril 5 mg nightly. -Continue low intensity heparin infusion with close monitoring of PTT levels for goal therapeutic range of 45 to 79 seconds. -Lipid profile with a.m. labs. -Echocardiogram Breast cancer -Status postlumpectomy. Patient to continue to follow-up outpatient with oncologist at [facility] and continue scheduled radiation treatment with [facility]. Depression -Continue Lexapro 5 mg every other day. Data and imaging reviewed: As stated above in HPI The patient is admitted with an anticipated greater than 2 midnight stay for evaluation of elevated troponin and chest pain. CODE STATUS: Full code DVT prophylaxis: Heparin infusion Discussed with: Patient, programmer or analyst, and cardiac INSTRUCTIONAL MEDIA SERVICES TECHNICIAN Anticipated discharge date: Pending clinical course Anticipated discharge place: Home Patient was seen independently by Nurse Practitioner. This document was prepared using [employer] dictation software. Please allow for errors in towel distributor while rare they do occur. [address] NP rendered care for this patient independently, reviewed the findings and plan as documented in the note above and agree with plan. I did not physically speak with or examine the patient on this date. Past Medical History Past Medical History: GERD/Reflux, Hyperlipidemia, Hypertension, Myocardial Infarction (IN), Osteoarthritis (OA), Pneumonia, Thyroid Disorder Additional Past Medical History / Comment(s): Hx of HSV, ischemic neuropathy of left eye, ischemic stroke right eye, thyroid nodules. "Minor heart attacks, vasospasms 2008 and 2010." Small aortic aneurysym, checked 1 month ago and stable. Hx Pneumonia. Last Myocardial Infarction Date:: 2010 History of Any Multi-Drug Resistant Organisms: None Reported Past Surgical History: Adenoidectomy, Tonsillectomy Additional Past Surgical History / Comment(s): COLONOSCOPY, thyroid biopsy, right knee miniscus repair Past Anesthesia/Blood Transfusion Reactions: No Reported Reaction Additional Past Anesthesia/Blood Transfusion Reaction / Comment(s): no past blood transfusion Past Psychological History: Depression Past Alcohol Use History: Occasional Past Drug Use History: None Reported - Past Family History Mother Family Medical History: Unable to Obtain Additional Family Medical History / Comment(s): ADOPTED Medications and Allergies Home Medications Medication Instructions Recorded Confirmed Type Aspirin [Adult Low Dose Aspirin EC] 81 mg PO DAILY 04/12/16 05/07/24 History valACYclovir HCL [Valtrex] 500 mg PO DAILY 04/12/16 05/07/24 History lisinopriL [Zestril] 5 mg PO HS 03/31/18 05/07/24 History Vitamin C/Biotin [Hair, Skin and 1 tab PO DAILY 11/13/18 05/07/24 History Nails] Calcium Carbonate [Calcium] 600 mg PO HS 05/07/24 05/07/24 History Cholecalciferol [Vitamin D3 (25 25 mcg PO DAILY 05/07/24 05/07/24 History Mcg = 1000 Iu)] Escitalopram [Lexapro] 5 mg PO Q2D@2100 05/07/24 05/07/24 History [place]-3/Dha/Epa/Fish Oil [Fish Oil 1 cap PO HS 05/07/24 05/07/24 History 1,000 mg Softgel] Rosuvastatin [Crestor] 10 mg PO Q2D@2100 05/07/24 05/07/24 History Allergies Allergy/AdvReac Type Severity Reaction Status Date / Time No Known Allergies Allergy Verified 05/07/24 06:42 Physical Exam Vitals: Vital Signs Temp Pulse Pulse Resp BP BP Pulse Ox 05/07/24 07:25 97.7 F 72 16 144/73 98 05/07/24 06:52 66 18 141/88 97 05/07/24 05:39 62 16 130/65 99 05/07/24 04:08 97.5 F L 63 18 159/86 98 Intake and Output 05/06/24 05/07/24 05/07/24 22:59 06:59 14:59 Other: Weight 89.811 kg Results CBC & Chem 7: 05/07/24 04:16 05/07/24 04:16 Labs: Abnormal Lab Results - Last 24 Hours (Table) 05/07/24 05/07/24 Range/Units 04:16 04:16 RBC 3.74 L (3.80-5.40) m/uL Chloride 110 H (98-107) mmol/L BUN 24 H (7-17) mg/dL Glucose 123 H (74-99) mg/dL
[2024-05-07] MEDS: lisinopriL 5 MG TAB PO SCH (20:50)
[2024-05-07] MEDS: ATORVASTATIN 20 MG TAB PO SCH (20:50)
[2024-05-07] MEDS: ESCITALOPRAM 5 MG TAB PO SCH (20:50)
[2024-05-08 06:21] LABS: Partial Thromboplastin Time 50.7 sec (22.0-30.0)
[2024-05-08 08:36] LABS: Basophils # (A) 0.06 X 10*3/uL (0.00-0.10); Basophils % (A) 1.2 %; Eosinophils # (A) 0.36 X 10*3/uL (0.04-0.35); HCT 36.8 % (37.2-46.3); Lymphocytes # (A) 1.85 X 10*3/uL (0.90-5.00); Lymphocytes % (A) 35.9 %; MCHC 32.6 g/dL (32.0-37.0); MCV 98.1 FL (80.0-97.0); Mean Platelet Volume 10.8 FL (9.5-12.2); Monocytes # (A) 0.53 X 10*3/uL (0.20-1.00); Monocytes % (A) 10.3 %; NRBC Per 100 WBC 0 X 10*3/uL (0.00-0.01); Neutrophils # (A) 2.34 X 10*3/uL (1.80-7.70); Neutrophils % (A) 45.4 %; Platelet Count 222 X 10*3/uL (140-440); RBC 3.75 X 10*6/uL (4.10-5.20); RDW 13.7 % (11.5-14.5); WBC 5.15 X 10*3/uL (4.50-10.00)
[2024-05-08 08:41] LABS: BUN/Creat Ratio 21.62 Ratio (12.00-20.00); Blood Urea Nitrogen 17.3 mg/dL (9.0-27.0); Calcium 8.8 mg/dL (8.7-10.3); Carbon Dioxide 23.2 mmol/L (21.6-31.8); Chloride 110 mmol/L (96-109); Glucose 123 mg/dL (70-110); LDL Cholesterol,Calculated 114.1 mg/dL (0.0-131.0); Magnesium 2.1 mg/dL (1.5-2.4); Sodium 143 mmol/L (135-145)
[2024-05-08] MEDS: ACETAMINOPHEN TAB 325 MG TAB PO PRN (08:48)
[2024-05-08] MEDS ORDERED: ASPIRIN 325 MG TAB PO SCH (09:00)
[2024-05-08] MEDS ORDERED: ALPRAZolam 0.25 MG TAB PO PRN (09:35)
[2024-05-08] MEDS ORDERED: NITROGLYCERIN SL TABS 0.4 MG TAB SUBLINGUAL PRN (09:35)
[2024-05-08] MEDS: SODIUM CHLORIDE 0.9% 1,000 ML IV SCH (09:46)
--- NOTE | 2024-05-08 11:06 | P.PN ---
Subjective Progress Note Date: 05/08/24 Hospital Course: Patient is a very pleasant 73-year-old female past medical history of CAD, hypertension, hyperlipidemia, aortic aneurysm, depression, and recently diagnosed breast cancer status post right lumpectomy in January and was scheduled to begin radiation therapy today. She presented to the emergency department as a transfer from [facility] for cardiac workup as patient presented there with heaviness to midsternal chest radiating into her back between her shoulder blades and into her bilaterally axillary region. Patient reports pain with significant pressure and would not let up. She was given aspirin, nitroglycerin, and started on heparin infusion which resulted in resolution of patient's pain. Initial troponin was reported to be negative however patient did have elevated D-dimer of 1.03. Upon arrival to our facili ty, patient reported pain fully subsided and denied any other complaints. She underwent evaluation in our emergency department. Vital signs upon arrival show blood pressure 159/86, heart rate 63, respiratory rate 18, temp 97.5 F, and SpO2 of 90% on room air. EKG was completed showing normal sinus rhythm at 65 bpm with no significant T wave or ST abnormalities upon personal review and interpretation. Labs completed and reviewed. CBC unremarkable. Coagulation profile showing a subtherapeutic PTT of 30.0. BMP showing hyperchloremia with chloride of 110 and mild prerenal azotemia with BUN of 24. Blood glucose 123. Liver profile unremarkable. Initial troponin was negative at less than 0.012 with repeat troponi elevating to 0.051. Patient was admitted under services with consultation to cardiology. Physical exam: Patient was seen and fully evaluated at bedside this morning. She was tearful and reports she cannot stand the pain in her joints. Patient reports she was recently diagnosed with polymyalgia rheumatica back in January just prior to being diagnosed with her breast cancer. She reports pain feels similar to previous flare and is in bilateral shoulder joints and knee joints and lying in the hospital has just made this pain significantly worsened and she cannot bear it anymore. She denies any further episodes of chest pain or discomfort at this time, but states she is unsure because the pain in her joints is so much worse. Patient reassured she will be medicated for this pain and to notify us if this pain is not resolved after medication is administered. Vital signs reviewed and stable. General: Nontoxic, no distress and appears stated age. Derm: Skin warm and dry, normal coloration for ethnicity. Head: Atraumatic, normocephalic and symmetric. Eyes: EOM's intact, no lid lag, and anicteric sclera Mouth: no lip lesions, mucus membranes moist Cardiovascular: regular rate and rhythm with normal S1S2, no murmur, positive posterior tibial pulses bilaterally, and cap refill < 2 seconds. Lungs: Respirations even, regular, and unlabored on room air. Lungs CTA bilaterally, no rhonchi, no rales, no wheezing, and no accessory muscle usage. Abdominal: soft, nontender to palpation, no guarding, no appreciable organomegaly Ext: ROM intact. No gross muscle atrophy, no edema, no contractures Neuro: Speech clear, face symmetrical and CN II-XII grossly intact with no noted focal neuro deficits Psych: Alert and oriented to person, place, time, and situation. Appropriate and pleasant affect. Assessment and Plan of Care: Chest pain with elevated troponins. Elevated D-dimer, pulmonary emboli ruled out Aortic aneurysm Hypertension Hyperlipidemia History of CAD with reports of coronary artery vasospasms Pulmonary nodule, 5 to 6 mm nodule in right upper lobe -Cardiology consulted, discussed plan of care in detail with cardiac REGIONAL BRANCH MANAGER and they are planning to take patient for cardiac catheterization tomorrow.. -CTA chest completed showing no evidence for aortic aneurysm, no reported pulmonary emboli, mediastinal adenopathy present as well as 5 to 6 mm nodule in the right upper lobe in which radiologist is recommending a 6-month follow-up CT scan of chest. -Telemetry monitoring -Troponins were trended resulting at less than 0.012, 0.051, and 0.065. -Continue aspirin 81 mg daily, atorvastatin 20 mg daily, lisinopril 5 mg nightly. -Continue low intensity heparin infusion with close monitoring of PTT levels for goal therapeutic range of 45 to 79 seconds. PTT currently therapeutic at 50.7 seconds. -Lipid profile with a.m. labs. -Echocardiogram Polymyalgia rheumatica -Patient with history of polymyalgia rheumatica, currently reporting 10 out of 10 pain in bilateral shoulder joints and knee joints at this time. -Order placed for Norflex 60 mg IVP x 1 dose, Decadron 10 mg IVP x 1 dose, and Toradol 15 mg IVP x 1 dose. Will likely start patient on course of prednisone after completion of cardiac cath. Breast cancer -Status post lumpectomy. Patient to continue to follow-up outpatient with oncologist at [facility] and continue scheduled radiation treatment with [facility]os. Depression -Continue Lexapro 5 mg every other day. Data and imaging reviewed: Morning labs reviewed. CBC showing mild macrocytosis with MCV of 98.1 otherwise normal findings. Coagulation profile showing a therapeutic PTT of 50.7. BMP showing hyperchloremia with chloride of 110 otherwise normal findings. Blood glucose 123. Magnesium 2.1. Lipid profile unremarkable. CTA chest completed showing no evidence for aortic aneurysm, no reported pulmonary emboli, mediastinal adenopathy present as well as 5 to 6 mm nodule in the right upper lobe in which radiologist is recommending a 6-month follow-up CT scan of chest. Vital signs reviewed and stable. Blood pressure 127/77, heart rate 58, respiratory rate 15, temp 98.1 F, and SpO2 of 98% on room air. CODE STATUS: Full code DVT prophylaxis: Heparin infusion Discussed with: Patient, flight control specialist, and cardiac REGIONAL BRANCH MANAGER Anticipated discharge date: Pending clinical course Anticipated discharge place: Home Patient was seen independently by Nurse Practitioner. This document was prepared using [employer] dictation software. Please allow for errors in management internship while rare they do occur. [address], [place] rendered care for this patient independently, reviewed the findings and plan as documented in the note above and agree with plan. I did not physically speak with or examine the patient on this date. Objective - Vital Signs Vital signs: Vital Signs Temp 98.1 F 05/08/24 07:10 Pulse 58 L 05/08/24 07:10 Resp 15 05/08/24 07:10 BP 127/77 05/08/24 07:10 Pulse Ox 98 05/08/24 07:10 FiO2 Intake & Output 05/07/24 05/08/24 05/08/24 18:59 06:59 18:59 Intake Total 23.926 202.959 Balance 23.926 202.959 Intake: Intake, IV Titration 23.926 202.959 Amount Heparin Sod,Pork in 0.45% 23.92 202.959 NaCl 25,000 unit In 0.45 % NaCl 1 250ml.bag @ 11.1 UNITS/KG/HR 9.969 mls/hr IV .Q24H [facility] Rx#: [id number] Other: Voiding Method Toilet # Voids 4 1 # Bowel Movements 0 - Labs CBC & Chem 7: 05/08/24 05:45 05/08/24 05:45 Labs: Abnormal Lab Results - Last 24 Hours (Table) 05/07/24 05/07/24 05/07/24 Range/Units 08:39 09:55 14:33 RBC (4.10-5.20) X 10*6/uL Hct (37.2-46.3) % MCV (80.0-97.0) FL Eosinophils # (0.04-0.35) X 10*3/uL APTT 43.2 H 68.2 H (22.0-30.0) sec Chloride (96-109) mmol/L BUN/Creatinine Ratio (12.00-20.00) Ratio Glucose (70-110) mg/dL Troponin I 0.065 H* (0.000-0.034) ng/mL 05/08/24 05/08/24 05/08/24 Range/Units 05:45 05:45 05:45 RBC 3.75 L (4.10-5.20) X 10*6/uL Hct 36.8 L (37.2-46.3) % MCV 98.1 H (80.0-97.0) FL Eosinophils # 0.36 H (0.04-0.35) X 10*3/uL APTT 50.7 H (22.0-30.0) sec Chloride 110 H (96-109) mmol/L BUN/Creatinine Ratio 21.62 H (12.00-20.00) Ratio Glucose 123 H (70-110) mg/dL Troponin I (0.000-0.034) ng/mL
[2024-05-08] MEDS: ORPHENADRINE 30 MG/ML 2 ML VIAL IVP STA (11:46)
[2024-05-08] MEDS: KETOROLAC 15 MG/ML 1 ML VIAL IVP STA (11:46)
[2024-05-08] MEDS: DEXAMETHASONE SOD PHOSPHATE 10 MG/ML 1 ML VIAL IVP STA (11:46)
--- NOTE | 2024-05-08 12:40 | CA ---
Transthoracic Echo Report Name: Ciara Matthew Age: 73 Gender: F : 1950 Exam Date: 05/08/2024 09:02 Exam Location: [place] [facility] Ht (in): 65 Wt (lb): 198 Ordering Physician: Yaneth Johnson Attending/Referring Phys: [id number], Alex Secretary [employer] Reba Morel RDCS Procedure CPT: Indications: LVH Cardiac Hx: Technical Quality: Fair Contrast 1: Definity Total Dose (mL): 1 Contrast 2: Total Dose (mL): MEASUREMENTS (Male / Female) Normal Values 2D ECHO LV Diastolic Diameter PLAX 5.0 cm 4.2 - 5.9 / 3.9 - 5.3 cm LV Systolic Diameter PLAX 3.3 cm IVS Diastolic Thickness 1.0 cm 0.6 - 1.0 / 0.6 - 0.9 cm LVPW Diastolic Thickness 1.1 cm 0.6 - 1.0 / 0.6 - 0.9 cm LV Relative Wall Thickness 0.4 LVOT Diameter 2.3 cm LV Diastolic Volume MOD BP 129.7 cm??? 67 - 155 / 56 - 104 cm??? LV Systolic Volume MOD BP 54.4 cm??? 22 - 58 / 19 - 49 cm??? LV Ejection Fraction MOD BP 58.1 % >= 55 % LV Cardiac Index MOD BP 2520.8 cm???/min???m??? LV Diastolic Volume MOD 4C 111.4 cm??? LV Systolic Volume MOD 4C 48.6 cm??? LV Ejection Fraction MOD 4C 56.4 % LV Cardiac Index MOD 4C 2099.0 cm???/min???m??? LV Diastolic Length 4C 8.1 cm LV Systolic Length 4C 7.5 cm LV Diastolic Volume MOD 2C 145.3 cm??? LV Systolic Volume MOD 2C 55.4 cm??? LV Ejection Fraction MOD 2C 61.9 % LV Cardiac Index MOD 2C 3006.1 cm???/min???m??? LV Diastolic Length 2C 8.4 cm LV Systolic Length 2C 6.8 cm LA Volume 64.7 cm??? 18 - 58 / 22 - 52 cm??? LA Volume Index 31.4 cm???/m??? 16 - 28 cm???/m??? Ascending Aorta Diameter 3.3 cm DOPPLER AV Peak Velocity 97.6 cm/s AV Peak Gradient 3.8 mmHg AV Mean Velocity 61.8 cm/s AV Mean Gradient 1.8 mmHg AV Velocity Time Integral 19.2 cm LVOT Peak Velocity 75.5 cm/s LVOT Peak Gradient 2.3 mmHg LVOT Velocity Time Integral 16.0 cm LVOT Stroke Volume 68.9 cm??? LVOT Stroke Volume Index 35.0 ml/m??? LVOT Cardiac Index 2303.4 cm???/min???m??? AV Area Cont Eq vti 3.6 cm??? AV Area Cont Eq pk 3.3 cm??? MV Area PHT 4.2 cm??? Mitral E Point Velocity 36.5 cm/s Mitral A Point Velocity 59.3 cm/s Mitral E to A Ratio 0.6 MV Deceleration Time 181.6 ms TR Peak Velocity 198.9 cm/s TR Peak Gradient 15.8 mmHg Right Atrial Pressure 5.0 mmHg Pulmonary Artery Systolic Pressu 20.8 mmHg Right Ventricular Systolic Press 20.8 mmHg PV Peak Velocity 83.5 cm/s PV Peak Gradient 2.8 mmHg FINDINGS Left Ventricle Left ventricular ejection fraction is estimated at 55-60 %. Mildly increased posterior wall thickness. Moderately increased left ventricular diastolic volume. Mildly increased left ventricular systolic volume. No obvious regional wall motion abnormalities. Right Ventricle Right ventricle not well visualized. Normal right ventricular function. Right ventricular systolic pressure within normal limits. Right Atrium Right atrium not well visualized. Left Atrium Mildly increased left atrial volume. Mildly increased left atrial area. Mitral Valve Mitral valve thickened. Prolapse of the posterior mitral valve leaflet. No mitral stenosis. [id number] mitral regurgitation. Aortic Valve Trileaflet aortic valve. No aortic stenosis. No aortic regurgitation. Tricuspid Valve Structurally normal tricuspid valve. No tricuspid stenosis. Trace tricuspid regurgitation. Pulmonic Valve Structurally normal pulmonic valve. No pulmonic stenosis. No pulmonic regurgitation. Pericardium No pericardial effusion. Prominent epicardial fat. Aorta Dilated aortic annulus. Normal ascending aorta. CONCLUSIONS LV size and systolic function is normal. There is moderate prolapse of posterior mitral leaflet with mild to moderate eccentric regurgitation. There is aortic valve sclerosis. No pericardial effusion probable fat pad. No significant pulmonary hypertension Previewed by: Dr. Bee Go MD (Electronically Signed) Final Date: 08 May 2024 12:39
--- NOTE | 2024-05-08 12:54 | P.PN ---
Subjective Progress Note Date: 05/08/24 Consult reason: chest pain History of present illness: This is a 73-year-old female patient with past medical history of dyslipidemia, hypertension, recent diagnosis of breast cancer in January of this year status postlumpectomy done at [facility] and scheduled to start radiation therapy at [facility] today. We have been asked to evaluate the patient for chest pain. Patient states that she woke up at 1130 with chest pain. It was involving the axilla both sides as well as shoulder blades in the midsternal area. Patient was initially treated at [facility] started on heparin drip due to elevated D-dimer that came back at 1.03. Patient is scheduled for CTA of the chest that has not been done at this time. There is concern that the heparin drip was not running and [facility] and corrected. Blood pressure 144/73, heart rate 72, pulse ox 98% on room air. Patient does follow at [facility] in [place] for her cardiac workup. She thinks that she had an echocardiogram done about a month ago at [facility] as an outpatient. She has a known ascending aortic aneurysm which we will ask for evaluation of this with the CTA. -EKG: Sinus rhythm with no acute ST changes. -Laboratory studies: WBC 7.3, hemoglobin 11.9. Sodium 140, potassium 3.8, BUN 24 creatinine 0.72. Troponin 0.012, 0.051 and 0.065. Magnesium 2.1 -Home cardiac medications: Aspirin 81 mg daily, lisinopril 5 mg at bedtime, Crestor 10 mg every 2 days. 05/08/24 Patient seen and examined. Yesterday, CTA came back negative aortic aneurysm and limited exam for pulmonary embolism revealed no central pulmonary embolism. Echocardiogram reveals EF of 55 to 60%. Moderate prolapse of the posterior mitral leaflet with mild to moderate eccentric regurgitation. There is aortic valve sclerosis. No pericardial effusion. No significant pulmonary hypertension. Recommended heart catheterization with for the patient and she is agreeable to move forward with this. Will plan to do this tomorrow as patient just had dye for CT yesterday. Physical examination: Gen: This is a 73-year-old female in no acute distress VS: reviewed HEENT: Head is atraumatic, normocephalic. Pupils equal, round. Sclerae is anict roxi. NECK: Supple. No JVD. LUNGS: Clear to auscultation. No wheezes or rhonchi. No intercostal r etractions. HEART: Regular rate and rhythm. No murmur. ABDOMEN: Soft No tenderness. EXTREMITIES: No pedal edema. No calf tenderness. NEUROLOGICAL: Patient is awake, alert and oriented x3. Assessment: Chest pain Elevated troponin of unclear significance Ruled out PE History of ascending aortic aneurysm Dyslipidemia Hypertension Recent diagnosis of breast cancer status postlumpectomy and scheduled for radiation therapy, patient declined chemotherapy Plan: Continue patient's home cardiac medications Continue patient on heparin drip until tomorrow morning Schedule patient for cardiac catheterization tomorrow with Dr. Go Further recommendations to follow based upon clinical course Nurse practitioner note has been reviewed, I agree with documented findings and plan of care. Patient was seen and examined. Objective - Vital Signs Vital signs: Vital Signs Temp 98.1 F 05/08/24 07:10 Pulse 58 L 05/08/24 07:10 Resp 15 05/08/24 07:10 BP 127/77 05/08/24 07:10 Pulse Ox 98 05/08/24 07:10 FiO2 Intake & Output 05/07/24 05/08/24 05/08/24 18:59 06:59 18:59 Intake Total 23.926 202.959 Balance 23.926 202.959 Intake: Intake, IV Titration 23.926 202.959 Amount Heparin Sod,Pork in 0.45% 23.926 202.959 NaCl 25,000 unit In 0.45 % NaCl 1 250ml.bag @ 11.1 UNITS/KG/HR 9.969 mls/hr IV .Q24H [facility] Rx#: [id number] Other: Voiding Method Toilet # Voids 4 1 # Bowel Movements 0 - Labs CBC & Chem 7: 05/08/24 05:45 05/08/24 05:45 Labs: Abnormal Lab Results - Last 24 Hours (Table) 05/07/24 05/07/24 05/08/24 Range/Units 09:55 14:33 05:45 RBC 3.75 L (4.10-5.20) X 10*6/uL Hct 36.8 L (37.2-46.3) % MCV 98.1 H (80.0-97.0) FL Eosinophils # 0.36 H (0.04-0.35) X 10*3/uL APTT 68.2 H (22.0-30.0) sec Chloride (96-109) mmol/L BUN/Creatinine Ratio (12.00-20.00) Ratio Glucose (70-110) mg/dL Troponin I 0.065 H* (0.000-0.034) ng/mL 05/08/24 05/08/24 Range/Units 05:45 05:45 RBC (4.10-5.20) X 10*6/uL Hct (37.2-46.3) % MCV (80.0-97.0) FL Eosinophils # (0.04-0.35) X 10*3/uL APTT 50.7 H (22.0-30.0) sec Chloride 110 H (96-109) mmol/L BUN/Creatinine Ratio 21.62 H (12.00-20.00) Ratio Glucose 123 H (70-110) mg/dL Troponin I (0.000-0.034) ng/mL
[2024-05-08 15:05] VITALS: RESP 16
[2024-05-09] MEDS: ALPRAZolam 0.5 MG TAB PO PRN (01:34)
[2024-05-09] MEDS: ATORVASTATIN 80 MG TAB PO ONE (06:55)
[2024-05-09] MEDS: ASPIRIN 325 MG TAB PO ONE (06:55)
[2024-05-09] MEDS ORDERED: HEPARIN SODIUM,PORCINE (1 ML) 2,500 UNIT in SODIUM CHLORIDE 0.9% 250 ML IRRIGATION PRN (07:00)
[2024-05-09] MEDS ORDERED: HEPARIN SODIUM,PORCINE 10,000 UNIT in SODIUM CHLORIDE 0.9% 1,000 ML IRRIGATION PRN (07:00)
[2024-05-09 09:19] LABS: HGB 12.1 g/dL (12.0-15.0); MCHC 32.7 g/dL (32.0-37.0); MCV 94.9 FL (80.0-97.0); Mean Platelet Volume 10.6 FL (9.5-12.2); NRBC Per 100 WBC 0 X 10*3/uL (0.00-0.01); Platelet Count 251 X 10*3/uL (140-440); RDW 13.4 % (11.5-14.5); WBC 9.81 X 10*3/uL (4.50-10.00)
[2024-05-09 10:07] LABS: BUN/Creat Ratio 25.38 Ratio (12.00-20.00); Blood Urea Nitrogen 20.3 mg/dL (9.0-27.0); Calcium 9.4 mg/dL (8.7-10.3); Carbon Dioxide 20.6 mmol/L (21.6-31.8); Chloride 112 mmol/L (96-109); Glucose 134 mg/dL (70-110); Sodium 144 mmol/L (135-145)
[2024-05-09] MEDS: HEPARIN SODIUM,PORCINE 10,000 UNIT in SODIUM CHLORIDE 0.9% 1,000 ML IRRIGATION ONE (10:33)
[2024-05-09] MEDS: HEPARIN SODIUM,PORCINE (1 ML) 2,500 UNIT in SODIUM CHLORIDE 0.9% 250 ML IRRIGATION ONE (10:33)
[2024-05-09] MEDS: SODIUM CHLORIDE 0.9% 1,000 ML IV ONE (10:33)
[2024-05-09] MEDS: MIDAZOLAM 2 MG/2 ML VIAL IVP ONE ×2 (10:52→11:00)
--- NOTE | 2024-05-09 10:54 | P.PN ---
Subjective Progress Note Date: 05/09/24 Consult reason: chest pain History of present illness: This is a 73-year-old female patient with past medical history of dyslipidemia, hypertension, recent diagnosis of breast cancer in January of this year status postlumpectomy done at [facility] and scheduled to start radiation therapy at [facility] today. We have been asked to evaluate the patient for chest pain. Patient states that she woke up at 1130 with chest pain. It was involving the axilla both sides as well as shoulder blades in the midsternal area. Patient was initially treated at [facility] started on heparin drip due to elevated D-dimer that came back at 1.03. Patient is scheduled for CTA of the chest that has not been done at this time. There is concern that the heparin drip was not running and this was [facility] [place] and corrected. Blood pressure 144/73, heart rate 72, pulse ox 98% on room air. Patient does follow at [facility] in [place] for her cardiac workup. She thinks that she had an echocardiogram done about a month ago at [facility] as an outpatient. She has a known ascending aortic aneurysm which we will ask for evaluation of this with the CTA. -EKG: Sinus rhythm with no acute ST changes. -Laboratory studies: WBC 7.3, hemoglobin 11.9. Sodium 140, potassium 3.8, BUN 24 creatinine 0.72. Troponin 0.012, 0.051 and 0.065. Magnesium 2.1 -Home cardiac medications: Aspirin 81 mg daily, lisinopril 5 mg at bedtime, Crestor 10 mg every 2 days. 05/08/24 Patient seen and examined. Yesterday, CTA came back negative aortic aneurysm and limited exam for pulmonary embolism revealed no central pulmonary embolism. Echocardiogram reveals EF of 55 to 60%. Moderate prolapse of the posterior mitral leaflet with mild to moderate eccentric regurgitation. There is aortic valve sclerosis. No pericardial effusion. No significant pulmonary hypertension. Recommended heart catheterization with for the patient and she is agreeable to move forward with this. Will plan to do this tomorrow as patient just had dye for CT yesterday. 05/09/2024 Patient seen and examined. She is scheduled for cardiac catheterization today with Dr. Go. Blood pressure 137/79, heart rate in the 70s and 80s, pulse ox 93% on room air. Repeat blood work reveals hemoglobin 12.1, potassium 4, BUN 20 creatinine 0.8. Triglycerides 131, cholesterol 187, LDL 114, HDL 46. Echocardiogram reveals normal LV size and systolic function. Moderate prolapse of the posterior mitral leaflet with mild to moderate eccentric regurgitation. Aortic valve sclerosis. No significant pulmonary hypertension. Patient states that her children live in [place] and were not able to come today for her procedure. Physical examination: Gen: This is a 73-year-old female in no acute distress VS: reviewed HEENT: Head is atraumatic, normocephalic. Pupils equal, round. Sclerae is anicteric. NECK: Supple. No JVD. LUNGS: Clear to auscultation. No wheezes or rhonchi. No intercostal retractions. HEART: Regular rate and rhythm. No murmur. ABDOMEN: Soft No tenderness. EXTREMITIES: No pedal edema. No calf tenderness. NEUROLOGICAL: Patient is awake, alert and oriented x3. Assessment: Chest pain Elevated troponin of unclear significance Ruled out PE History of ascending aortic aneurysm Dyslipidemia Hypertension Recent diagnosis of breast cancer status postlumpectomy and scheduled for radiation therapy, patient declined chemotherapy Plan: Continue patient's home cardiac medications Discontinue heparin drip Cardiac catheterization this morning with Dr. Go Further recommendations to follow based upon clinical course Nurse practitioner note has been reviewed, I agree with documented findings and plan of care. Patient was seen and examined. Objective - Vital Signs Vital signs: Vital Signs Temp 97.6 F 05/09/24 07:00 Pulse 72 05/09/24 07:00 Resp 16 05/09/24 07:00 BP 137/79 05/09/24 07:00 Pulse Ox 93 L 05/09/24 07:00 FiO2 Intake & Output 05/08/24 05/09/24 05/09/24 18:59 06:59 18:59 Intake Total 971.115 185.426 Balance 971.115 185.426 Intake: Intake, IV Titration 23.115 185.426 Amount Heparin Sod,Pork in 0.45% 23.115 185.426 NaCl 25,000 unit In 0.45 % NaCl 1 250ml.bag @ 11.1 UNITS/KG/HR 9.969 mls/hr IV .Q24H IN[facility] Rx#: [id number] Oral 948 Other: # Voids 1 2 - Labs CBC & Chem 7: 05/09/24 05:51 05/09/24 05:51 Labs: Abnormal Lab Results - Last 24 Hours (Table) 05/08/24 05/08/24 05/09/24 Range/Units 05:45 05:45 05:51 RBC 3.75 L (4.10-5.20) X 10*6/uL Hct 36.8 L (37.2-46.3) % MCV 98.1 H (80.0-97.0) FL Eosinophils # 0.36 H (0.04-0.35) X 10*3/uL APTT 51.5 H (22.0-30.0) sec Chloride 110 H (96-109) mmol/L BUN/Creatinine Ratio 21.62 H (12.00-20.00) Ratio Glucose 123 H (70-110) mg/dL
[2024-05-09] MEDS: fentaNYL (PF) 50 MCG/ML 2 ML AMP IVP ONE (11:00)
[2024-05-09] MEDS: LIDOCAINE 1% INJ 10MG/ML (20 ML MDV) SQ ONE (11:01)
[2024-05-09] MEDS: VERAPAMIL SYRINGE (5 MG/10 ML) INTRAARTER ONE (11:03)
[2024-05-09] MEDS: HEPARIN SODIUM 1,000 UN/ML (10ML VL) IVP ONE (11:04)
[2024-05-09] MEDS: IOPAMIDOL-370 100ML BTL INJ ONE (11:13)
[2024-05-09] MEDS: SODIUM CHLORIDE 0.9% 1,000 ML IV SCH (11:42)
--- NOTE | 2024-05-09 11:49 | P.CARDCATH ---
Date of Procedure: 05/09/24 Description of Procedure: History: This patient presented to the hospital with episode of chest pain and had mild troponin elevation. The pattern of troponin raises the possibility of non-ST elevation SC. She was recently diagnosed with breast cancer and was scheduled to have radiation therapy this week. However she had some pleuritic pain as well and a CT angiogram revealed no evidence of any pulmonary embolism or of any aortic pathology of significance. She was then advised coronary angiography gi stacey the nature of chest pain and troponin elevation. Risk benefits options were explained. Her other comorbid conditions include recent diagnosis of breast cancer, mitral valve prolapse with moderate mitral regurgitation and posterior valve leaflet prolapse. She also has mild hypertension and hypercholesterolemia. She understood all details and wished to proceed with the procedure patient was referred for cardiac catheterization to evaluate for CAD. Procedure Details: The risks, benefits, complications, treatment options, and expected outcomes were discussed with the patient. The patient and/or family concurred with the proposed plan, giving informed consent. Patient was brought to the corn lab technician after IV hydration was begun and oral premedication was given. Patient was further sedated with midazolam. Patient was prepped and draped in the usual manner. Under strict aseptic precautions and local anesthesia a 6 Greek introducer was placed in the right radial artery. Using a JL 3/5 and a JR 4/0 catheters I performed coronary angiography and the same JR catheter was used to check LV pressures and LV gram was not performed. After the procedure was completed the sheaths and catheters were all removed. Hemostasis was achieved with TR band. Saturation in the fingers of the right hand was about 97%. Moderate conscious sedation time was 20 minutes. Patient's oxygen saturation h emodynamics and EKG were monitored closely. Findings: Hemodynamics: Left ventricular end-diastolic pressure was 14 with no gradient across aortic valve Left Main: Short vessel no significant disease trifurcates into LAD circumflex and ramus intermedius LAD: Large caliber large distribution vessel supplies a lot of myocardium curves over the apex to supply inferoapical portion of the left ventricle. No significant disease CIRC: Nondominant vessel no significant disease minor irregularities. Ramus intermedius: Caliber vessel no significant disease minor irregularities RCA: Dominant vessel minor irregularities distally bifurcates into PDA and PLV no significant disease SVG(s): ANAYA: LV: LV gram not performed Closure Device: TR band Complications: None Estimated Blood Loss: Minimal Impression: This patient has normal filling pressures no gradient right dominant system no significant CAD Pre Procedure Diagnosis: Non-ST elevation SC Final Post Procedure Diagnosis: Noncritical CAD Recommendation: Aggressive risk factor modification home today after hydration. Can proceed with the radiation therapy for breast cancer. Discussed with patient at length no family available Complications: None; patient tolerated the procedure well. Disposition: 6 N. observation- hemodynamically stable. Condition: Stable Discharge Disposition: Discharge patient home later on today.
--- NOTE | 2024-05-09 12:49 | P.DS ---
Providers Date of admission: 05/07/24 05:50 Expected date of discharge: 05/09/24 Attending physician: Paul Hodges MD Consults: 05/07/24 05:50 Consult Physician Urgent Consulting Provider: Bebeto Link Consult Reason/Comments: chest pain Do you want consulting provider notified?: Yes 05/07/24 06:39 Consult Physician Routine Consulting Provider: Isaías Kaplan Consult Reason/Comments: your patient Do you want consulting provider notified?: Yes Primary care physician: Adela Smith MD Hospital Course: Discharge Diagnosis: Chest pain with elevated troponins. NSTEMI, Troponins were trended resulting at less than 0.012, 0.051, and 0.065. Echocardiogram was completed showing a preserved EF of 55 to 60% with moderate prolapse of posterior mitral leaflet with mild to moderate eccentric regurgitation mild aortic valve sclerosis. Patient was taken for a cardiac cath showing normal filling pressures and no significant CAD. Patient was started on metoprolol 12.5 mg daily in addition to current cardiac medication regimen with aspirin 81 mg daily, atorvastatin 20 mg daily, and lisinopril 5 mg daily. Patient cleared from cardiac perspective to be discharged at 6 PM. 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 CTA chest completed showing no evidence for aortic aneurysm, no reported pulmonary emboli, mediastinal adenopathy present as well as 5 to 6 mm nodule in the right upper lobe in which radiologist is recommending a 6-month follow-up CT scan of chest. Polymyalgia rheumatica. Patient had episode of joint pain and was provided with Norflex, Toradol, and IV steroids. Patient reports full resolution of joint pain, will hold off on ordering additional prednisone at this time. Breast cancer. Status post lumpectomy. Patient to continue to follow-up outpatient with oncologist at [facility] and continue scheduled radiation treatment with [facility]. Depression. Continue Lexapro 5 mg every other day. Hospital Course: Patient is a very pleasant 73-year-old female past medical history of CAD, hypertension, hyperlipidemia, aortic aneurysm, depression, and recently diagnosed breast cancer status post right lumpectomy in January and was scheduled to begin radiation therapy today. She presented to the emergency department as a transfer from [facility] for cardiac workup as patient presented there with heaviness to midsternal chest radiating into her back between her shoulder blades and into her bilaterally axillary region. Patient reports pain with significant pressure and would not let up. She was given aspirin, nitroglycerin, and started on heparin infusion which resulted in resolution of patient's pain. Initial troponin was reported to be negative however patient did have elevated D-dimer of 1.03. Upon arrival to our facility, patient reported pain fully subsided and denied any other complaints. She underwent evaluation in our emergency department. Vital signs upon arrival show blood pressure 159/86, heart rate 63, respiratory rate 18, temp 97.5 F, and SpO2 of 90% on room air. EKG was completed showing normal sinus rhythm at 65 bpm with no significant T wave or ST abnormalities upon personal review and interpretation. Labs completed and reviewed. CBC unremarkable. Coagulation profile showing a subtherapeutic PTT of 30.0. BMP showing hyperchloremia with chloride of 110 and mild prerenal azotemia with BUN of 24. Blood glucose 123. Liver profile unremarkable. Initial troponin was negative at less than 0.012 with repeat troponi elevating to 0.051. Patient was admitted under services with consultation to cardiology. Troponins were trended resulting at less than 0.012, 0.051, and 0.065. Echocardiogram was completed showing a preserved EF of 55 to 60% with moderate prolapse of posterior mitral leaflet with mild to moderate eccentric regurgitation mild aortic valve sclerosis. Patient was taken for a cardiac cath showing normal filling pressures and no significant CAD. Patient was started on metoprolol 12.5 mg daily in addition to current cardiac medication regimen with aspirin 81 mg daily, atorvastatin 20 mg daily, and lisinopril 5 mg daily. Patient cleared from cardiac perspective to be discharged at 6 PM. 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 General: Nontoxic, no distress and appears stated age. Derm: Skin warm and dry, normal coloration for ethnicity. Head: Atraumatic, normocephalic and symmetric. Eyes: EOM's intact, no lid lag, and anicteric sclera Mouth: no lip lesions, mucus membranes moist Cardiovascular: regular rate and rhythm with normal S1S2, no murmur, positive posterior tibial pulses bilaterally, and cap refill < 2 seconds. Lungs: Respirations even, regular, and unlabored on room air. Lungs CTA bilaterally, no rhonchi, no rales, no wheezing, and no accessory muscle usage. Abdominal: soft, nontender to palpation, no guarding, no appreciable organomegaly Ext: ROM intact. No gross muscle atrophy, no edema, no contractures Neuro: Speech clear, face symmetrical and CN II-XII grossly intact with no noted focal neuro deficits Psych: Alert and oriented to person, place, time, and situation. Appropriate and pleasant affect. A total of 35 minutes of time were spent preparing this complex discharge summary. Pt was discharged on 05/09/2024 at 12:33 PM. Patient was seen independently by Nurse Practitioner. This document was prepared using [employer] dictation software. Please allow for errors in crochet machine operator while rare they do occur. [address] NP rendered care for this patient independently, reviewed the findings and plan as documented in the note above. I did not physically speak with or examine the patient on this date. Patient Condition at Discharge: Stable Plan - Discharge Summary Discharge Rx Participant: Yes New Discharge Prescriptions: New Metoprolol Succinate (ER) [Toprol XL] 12.5 mg PO DAILY 30 Days #30 tab Continue valACYclovir HCL [Valtrex] 500 mg PO DAILY Aspirin [Adult Low Dose Aspirin EC] 81 mg PO DAILY lisinopriL [Zestril] 5 mg PO HS Vitamin C/Biotin [Hair, Skin and Nails Chew] 1 tab PO DAILY Cohagen-3/Dha/Epa/Fish Oil [Fish Oil 1,000 mg Softgel] 1 cap PO HS Cholecalciferol [Vitamin D3 (25 Mcg = 1000 Iu)] 25 mcg PO DAILY Calcium Carbonate [Calcium] 600 mg PO HS Rosuvastatin [Crestor] 10 mg PO Q2D@2100 Escitalopram [Lexapro] 5 mg PO Q2D@2100 Discharge Medication List Aspirin [Adult Low Dose Aspirin EC] 81 mg PO DAILY 04/12/16 [History] valACYclovir HCL [Valtrex] 500 mg PO DAILY 04/12/16 [History] lisinopriL [Zestril] 5 mg PO HS 03/31/18 [History] Vitamin C/Biotin [Hair, Skin and Nails Chew] 1 tab PO DAILY 11/13/18 [History] Calcium Carbonate [Calcium] 600 mg PO HS 05/07/24 [History] Cholecalciferol [Vitamin D3 (25 Mcg = 1000 Iu)] 25 mcg PO DAILY 05/07/24 [History] Escitalopram [Lexapro] 5 mg PO Q2D@209905/07/24 [History] Cohagen-3/Dha/Epa/Fish Oil [Fish Oil 1,000 mg Softgel] 1 cap PO HS 05/07/24 [History] Rosuvastatin [Crestor] 10 mg PO Q2D@209905/07/24 [History] Metoprolol Succinate (ER) [Toprol XL] 12.5 mg PO DAILY 30 Days #30 tab 05/09/24 [Rx] Follow up Appointment(s)/Referral(s): Bee Go MD [STAFF PHYSICIAN] - 05/15/24 9:30 am Adela Smith MD [Primary Care Provider] - 1-2 days Activity/Diet/Wound Care/Special Instructions: Activity: As tolerated. Take breaks as needed. Diet: Heart healthy and carb consistent diet. Avoid salts, or foods with hidden salts such as canned or boxed foods and frozen dinners. Extra salt makes your heart work harder and traps the fluid in your body for longer. Special Instructions: Take all of your medications as directed and remember to keep all of your doctor's appointments and follow-up as needed. The CTA of your chest revealed a 5 to 6 mm nodule in the right upper lobe with mediastinal adenopathy, this may be reactive however it is recommended that you follow-up with a repeat CT scan of your chest in 6 months for close mo nitoring/surveillance. Wishing you and your family a truly blessed holiday season and a happy and healthy new year!! Thank you for allowing us to participate in your care, it was truly a pleasure having you for our patient!!! . Discharge Disposition: HOME SELF-CARE
[2024-05-09 12:59] VITALS: TEMP 98.1
[2024-05-09 15:09] VITALS: PULSE 85
[2024-05-09 15:10] VITALS: BP 107/70
[2024-05-10] MEDS ORDERED: ATORVASTATIN 20 MG TAB PO SCH (09:00)
[2024-05-10] MEDS ORDERED: METOPROLOL SUCCINATE (ER) 25 MG TAB.ER.24H PO SCH (09:00)
== END 2024-05-09 17:40 | disposition home or self-care (01) | DRG 282 ==
LOC: EC 03:47 → OBSVTOIN 05:50 → 6NMEDSUR 05:50
PROVIDERS: ADMIT Internal Medicine; ATTEND Internal Medicine
PROC: B2111ZZ Fluoroscopy of Multiple Coronary Arteries using Low Osmolar Contrast (ICD-10-PCS; principal; 2024-05-09 12:00)
PROC: 4A023N7 Measurement of Cardiac Sampling and Pressure, Left Heart, Percutaneous Approach (ICD-10-PCS; principal; 2024-05-09 12:00)
DX: I21.4 Non-ST elevation (NSTEMI) myocardial infarction (principal); C50.919 Malignant neoplasm of unspecified site of unspecified female breast; E78.5 Hyperlipidemia, unspecified; E87.8 Other disorders of electrolyte and fluid balance, not elsewhere classified; F32.A Depression, unspecified; I08.0 Rheumatic disorders of both mitral and aortic valves; I10 Essential (primary) hypertension; I25.10 Atherosclerotic heart disease of native coronary artery without angina pectoris; I25.2 Old myocardial infarction; I71.21 Aneurysm of the ascending aorta, without rupture; K21.9 Gastro-esophageal reflux disease without esophagitis; M35.3 Polymyalgia rheumatica; E04.2 Nontoxic multinodular goiter; R59.0 Localized enlarged lymph nodes; R91.1 Solitary pulmonary nodule; R79.1 Abnormal coagulation profile; Z87.01 Personal history of pneumonia (recurrent); Z79.82 Long term (current) use of aspirin; Z79.899 Other long term (current) drug therapy; Z86.73 Personal history of transient ischemic attack (TIA), and cerebral infarction without residual deficits; Z86.69 Personal history of other diseases of the nervous system and sense organs
CPT/HCPCS: 36415; 71275; 80048; 80053; 80061; 83735; 84484; 85025; 85027; 85610; 85730; 93005; 93306; 93458; 96372; 99285

== ENCOUNTER 2024-05-12 15:10 | Emergency (ER) | payer MEDICARE ==
[2024-05-12 15:23] VITALS: TEMP 97.4
--- NOTE | 2024-05-12 15:38 | ED ---
General Adult HPI - General Chief complaint: Chest Pain Stated complaint: Chest Pain Time Seen by Provider: 05/12/24 15:20 Source: patient, family, RN notes reviewed, old records reviewed Mode of arrival: wheelchair Limitations: no limitations - History of Present Illness Initial comments: This is a 73-year-old female who presents to the emergency department with a recent history of breast cancer for which she has not yet started treatment. Patient also states she was here couple days ago with chest pain and she was admitted and had a cardiac catheterization that showed no coronary artery disease. Patient states she also had a CAT scan no pulmonary embolism or aortic dissection. Patient comes in today because she continues to have chest pain states she feels in her back as well. Patient states occasionally a little bit short of breath. Patient denies any fever chills or cough. Patient states the pain is not associated with exertion. Patient denies abdominal pain patient has nausea vomiting or diarrhea. - Related Data Home Medications Medication Instructions Recorded Confirmed Aspirin [Adult Low Dose Aspirin EC] 81 mg PO DAILY 04/12/16 05/12/24 valACYclovir HCL [Valtrex] 500 mg PO DAILY 04/12/16 05/12/24 lisinopriL [Zestril] 5 mg PO HS 03/31/18 05/12/24 Vitamin C/Biotin [Hair, Skin and 1 tab PO DAILY 11/13/18 05/12/24 Nails Chew] Calcium Carbonate [Calcium] 600 mg PO HS 05/07/24 05/12/24 Cholecalciferol [Vitamin D3 (25 25 mcg PO DAILY 05/07/24 05/12/24 Mcg = 1000 Iu)] Escitalopram [Lexapro] 5 mg PO Q2D@209905/07/24 05/12/24 [place]-3/Dha/Epa/Fish Oil [Fish Oil 1 cap PO HS 05/07/24 05/12/24 1,000 mg Softgel] Rosuvastatin [Crestor] 10 mg PO Q2D@209905/07/24 05/12/24 Previous Rx's Medication Instructions Recorded Metoprolol Succinate (ER) [Toprol 12.5 mg PO DAILY 30 Days #30 tab 05/09/24 XL] Allergies Allergy/AdvReac Type Severity Reaction Status Date / Time No Known Allergies Allergy Verified 05/12/24 17:09 Review of Systems ROS Statement: Those systems with pertinent positive or pertinent negative responses have been documented in the HPI. ROS Other: All systems not noted in ROS Statement are negative. Past Medical History Past Medical History: GERD/Reflux, Hyperlipidemia, Hypertension, Myocardial Infarction (VA), Osteoarthritis (OA), Pneumonia, Thyroid Disorder Additional Past Medical History / Comment(s): Hx of HSV, ischemic neuropathy of left eye, ischemic stroke right eye, thyroid nodules. "Minor heart attacks, vasospasms 2008 and 2010." Small aortic aneurysym, checked 1 month ago and stable. Hx Pneumonia. Last Myocardial Infarction Date:: 2010 History of Any Multi-Drug Resistant Organisms: None Reported Past Surgical History: Adenoidectomy, Heart Catheterization, Tonsillectomy Additional Past Surgical History / Comment(s): COLONOSCOPY, thyroid biopsy, right knee miniscus repair Past Anesthesia/Blood Transfusion Reactions: No Reported Reaction Additional Past Anesthesia/Blood Transfusion Reaction / Comment(s): no past blood transfusion Past Psychological History: Depression Smoking Status: Never smoker Past Alcohol Use History: Occasional Past Drug Use History: None Reported - Past Family History Mother Family Medical History: Unable to Obtain Additional Family Medical History / Comment(s): ADOPTED General Exam - General Exam Comments Initial Comments: GENERAL: Patient is well-developed and well-nourished. Patient is nontoxic and well- hydrated and is in mild distress. ENT: Neck is soft and supple. No significant lymphadenopathy is noted. Oropharynx is clear. Moist mucous membranes. Neck has full range of motion without eliciting any pain. EYES: The sclera were anicteric and conjunctiva were pink and moist. Extraocular movements were intact and pupils were equal round and reactive to light. Ey elids were unremarkable. PULMONARY: Unlabored respirations. Good breath sounds bilaterally. No audible rales rhonchi or wheezing was noted. CARDIOVASCULAR: There is a regular rate and rhythm without any murmurs gallops or rubs. ABDOMEN: Soft and nontender with normal bowel sounds. SKIN: Skin is clear with no lesions or rashes and otherwise unremarkable. NEUROLOGIC: Patient is alert and oriented x3. Cranial nerves II through XII are grossly intact. Motor and sensory are also intact. Normal speech, volume and content. Symmetrical smile. MUSCULOSKELETAL: Normal extremities with adequate strength and full range of motion. No lower extremity swelling or edema. No calf tenderness. LYMPHATICS: No significant lymphadenopathy is noted PSYCHIATRIC: Normal psychiatric evaluation. Limitations: no limitations Course Vital Signs 12/14/24 15:17 Temperature 97.4 F L Pulse Rate 75 Respiratory 20 Rate Blood Pressure 120/89 O2 Sat by Pulse 97 Oximetry Medical Decision Making - Medical Decision Making EKG is interpreted by myself EKG shows a sinus rhythm at 79 bpm [place] was 166 QRS is 100 QT interval is 376 QTc is 411. Patient's EKG shows no ST segment elevation or depression. Was pt. sent in by a medical professional or institution (, [facility], PRODUCT SAFETY ENGINEER, urgent care, hospital, or [facility]...) When possible be specific @ -No Did you speak to anyone other than the patient for history (EMS, parent, family, police, friend...)? What history was obtained from this source @ -No Did you review nursing and triage notes (agree or disagree)? Why? @ -I reviewed and agree with nursing and triage notes Were old charts reviewed (outside hosp., previous admission, EMS record, old EKG, old radiological studies, urgent care reports/EKG's, [facility] records)? Report findings @ -No old charts were reviewed Differential Diagnosis? @ -Differential Chest Pain: Stable Angina, Unstable Angina, STEMI, NSTEMI Aortic Dissection, Pneumothorax, Musculoskeletal, Esophageal Spasm GERD, Cholecystitis, Pancreatitis, Zoster, this is not meant to be an all-inclusive list. EKG interpreted by me (3pts min.). @ -As above X-rays interpreted by me (1pt min.). @ -X-ray shows no acute abnormality. CT interpreted by me (1pt min.). @ -None done U/S interpreted by me (1pt. min.). @ -None done What testing was considered but not performed or refused? (CT, X-rays, U/S, labs)? Why? @ -None What meds were considered but not given or refused? Why? @ -None Did you discuss the management of the patient with other professionals (professionals i.e. [facility] Mishra, PRODUCT SAFETY ENGINEER, lab, RT, psych nurse, social contact worker, accounts executive, teacher, svp chief marketing officer, social work case manager)? Give summary @ -No Was smoking cessation discussed for >3mins.? @ -No Was critical care preformed (if so, how long)? @ -No Were there social determinants of health that impacted care today? How? (Homelessness, low income, unemployed, alcoholism, drug addiction, transportation, low edu. Level, literacy, decrease access to med. care, retirement, rehab)? @ -No Was there de-escalation of care discussed even if they declined (Discuss DNR or withdrawal of care, Hospice)? DNR status @ -No What co-morbidities impacted this encounter? (DM, HTN, Smoking, COPD, CAD, Cancer, CVA, ARF, Chemo, Hep., AIDS, mental health diagnosis, sleep apnea, morbid obesity)? @ -None Was patient admitted / discharged? Hospital course, mention meds given and route, prescriptions, significant lab abnormalities, [facility]. @ -Patient received Toradol and the chest pain disappeared while she was in the emergency department. Patient's lab work is essentially normal. He she was slightly dehydrated. Patient's TSH was low and she is going to follow that up with her primary medical care doctor. Patient's urine looked a little dirty so it is good to be cultured and we will contact her if it appears to be infected Undiagnosed new problem with uncertain prognosis? @ -No Drug Therapy requiring intensive monitoring for toxicity (Heparin, Nitro, Insulin, Cardizem)? @ -No Were any procedures done? @ -No Diagnosis/symptom? @ -Atypical chest Acute, or Chronic, or Acute on Chronic? @ -Acute Uncomplicated (without systemic symptoms) or Complicated (systemic symptoms)? @ -Complicated Side effects of treatment? @ -No Exacerbation, Progression, or Severe Exacerbation? @ -No Poses a threat to life or bodily function? How? (Chest pain, [place], VA, pneumonia, PE, COPD, DKA, ARF, appy, cholecystitis, CVA, Diverticulitis, Homicidal, Suicidal, threat to staff... and all critical care pts) @ -No - Lab Data Result diagrams: 05/12/24 15:41 05/12/24 15:41 Lab Results 05/12/24 05/12/24 05/12/24 Range/Units 15:41 15:41 15:41 WBC 8.9 (3.8-10.6) k/uL RBC 4.46 (3.80-5.40) m/uL Hgb 14.2 (11.4-16.0) gm/dL Hct 43.6 (34.0-46.0) % MCV 97.8 (80.0-100.0) fL MCH 31.9 (25.0-35.0) pg MCHC 32.6 (31.0-37.0) g/dL RDW 13.4 (11.5-15.5) % Plt Count 273 (150-450) k/uL MPV 7.5 Neutrophils % 59 % Lymphocytes % 26 % Monocytes % 7 % Eosinophils % 5 % Basophils % 1 % Neutrophils # 5.2 (1.3-7.7) k/uL Lymphocytes # 2.3 (1.0-4.8) k/uL Monocytes # 0.7 (0-1.0) k/uL Eosinophils # 0.4 (0-0.7) k/uL Basophils # 0.1 (0-0.2) k/uL PT 10.6 (10.0-12.5) sec INR 1.0 (<1.2) APTT 22.8 (22.0-30.0) sec Sodium 139 (137-145) mmol/L Potassium 3.9 (3.5-5.1) mmol/L Chloride 106 (98-107) mmol/L Carbon Dioxide 27 (22-30) mmol/L Anion Gap 6 mmol/L BUN 26 H (7-17) mg/dL Creatinine 0.91 (0.52-1.04) mg/dL Est GFR (CKD-EPI)AfAm 73 (>60 ml/min/1.73 sqM) Est GFR (CKD-EPI)NonAf 64 (>60 ml/min/1.73 sqM) Glucose 100 H (74-99) mg/dL Calcium 9.9 (8.4-10.2) mg/dL Magnesium 2.2 (1.6-2.3) mg/dL Total Bilirubin 0.5 (0.2-1.3) mg/dL AST 49 H (14-36) U/L ALT 48 H (4-34) U/L Alkaline Phosphatase 77 (38-126) U/L Total Protein 7.2 (6.3-8.2) g/dL Albumin 4.8 (3.5-5.0) g/dL TSH 0.118 L (0.465-4.680) mIU/L Free T4 1.33 (0.78-2.19) ng/dL Urine Color Urine Appearance (Clear) Urine pH (5.0-8.0) Ur Specific [place] (1.001-1.035) Urine Protein (Negative) Urine Glucose (UA) (Negative) Urine Ketones (Negative) Urine Blood (Negative) Urine Nitrite (Negative) Urine Bilirubin (Negative) Urine Urobilinogen (<2.0) mg/dL Ur Leukocyte Esterase (Negative) Urine RBC (0-5) /hpf Urine WBC (0-5) /hpf Ur Squamous Epith Cells (0-4) /hpf Urine Bacteria (None) /hpf Urine Mucus (None) /hpf 05/12/24 Range/Units 17:45 WBC (3.8-10.6) k/uL RBC (3.80-5.40) m/uL Hgb (11.4-16.0) gm/dL Hct (34.0-46.0) % MCV (80.0-100.0) fL MCH (25.0-35.0) pg MCHC (31.0-37.0) g/dL RDW (11.5-15.5) % Plt Count (150-450) k/uL MPV Neutrophils % % Lymphocytes % % Monocytes % % Eosinophils % % Basophils % % Neutrophils # (1.3-7.7) k/uL Lymphocytes # (1.0-4.8) k/uL Monocytes # (0-1.0) k/uL Eosinophils # (0-0.7) k/uL Basophils # (0-0.2) k/uL PT (10.0-12.5) sec INR (<1.2) APTT (22.0-30.0) sec Sodium (137-145) mmol/L Potassium (3.5-5.1) mmol/L Chloride (98-107) mmol/L Carbon Dioxide (22-30) mmol/L Anion Gap mmol/L BUN (7-17) mg/dL Creatinine (0.52-1.04) mg/dL Est GFR (CKD-EPI)AfAm (>60 ml/min/1.73 sqM) Est GFR (CKD-EPI)NonAf (>60 ml/min/1.73 sqM) Glucose (74-99) mg/dL Calcium (8.4-10.2) mg/dL Magnesium (1.6-2.3) mg/dL Total Bilirubin (0.2-1.3) mg/dL AST (14-36) U/L ALT (4-34) U/L Alkaline Phosphatase (38-126) U/L Total Protein (6.3-8.2) g/dL Albumin (3.5-5.0) g/dL TSH (0.465-4.680) mIU/L Free T4 (0.78-2.19) ng/dL Urine Color Yellow Urine Appearance Cloudy H (Clear) Urine pH 6.0 (5.0-8.0) Ur Specific [place] 1.033 (1.001-1.035) Urine Protein 1+ H (Negative) Urine Glucose (UA) Negative (Negative) Urine Ketones Negative (Negative) Urine Blood Negative (Negative) Urine Nitrite Negative (Negative) Urine Bilirubin Negative (Negative) Urine Urobilinogen 3.0 (<2.0) mg/dL Ur Leukocyte Esterase Large H (Negative) Urine RBC 8 H (0-5) /hpf Urine WBC 163 H (0-5) /hpf Ur Squamous Epith Cells 35 H (0-4) /hpf Urine Bacteria Occasional H (None) /hpf Urine Mucus Many H (None) /hpf Disposition Clinical Impression: Chest pain, Low TSH level, Dehydration Disposition: HOME SELF-CARE Condition: Good Instructions (If sedation given, give patient instructions): Chest Pain (ED) Is patient prescribed a controlled substance at d/c from ED?: No Referrals: Adela Smith MD [Primary Care Provider] - 1-2 days Time of Disposition: 18:42
[2024-05-12 15:54] LABS: Basophils # (A) 0.1 k/uL (0-0.2); Basophils % (A) 1 %; Eosinophils # (A) 0.4 k/uL (0-0.7); Eosinophils % (A) 5 %; HCT 43.6 % (34.0-46.0); HGB 14.2 gm/dL (11.4-16.0); Lymphocytes # (A) 2.3 k/uL (1.0-4.8); Lymphocytes % (A) 26 %; MCH 31.9 pg (25.0-35.0); MCHC 32.6 g/dL (31.0-37.0); MCV 97.8 fL (80.0-100.0); Mean Platelet Volume 7.5; Monocytes # (A) 0.7 k/uL (0-1.0); Monocytes % (A) 7 %; Neutrophils # (A) 5.2 k/uL (1.3-7.7); Neutrophils % (A) 59 %; Platelet Count 273 k/uL (150-450); RBC 4.46 m/uL (3.80-5.40); RDW 13.4 % (11.5-15.5); WBC 8.9 k/uL (3.8-10.6)
[2024-05-12] MEDS: KETOROLAC 15 MG/ML 1 ML VIAL IVP STA (16:01)
[2024-05-12 16:02] LABS: Partial Thromboplastin Time 22.8 sec (22.0-30.0); Prothrombin Time 10.6 sec (10.0-12.5)
[2024-05-12 16:05] LABS: ALT 48 U/L (4-34); AST 49 U/L (14-36); African American GFR (CKD) 73 (>60 ml/min/1.73 sqM); Albumin 4.8 g/dL (3.5-5.0); Alkaline Phosphatase 77 U/L (38-126); Anion Gap 6 mmol/L; Blood Urea Nitrogen 26 mg/dL (7-17); Calcium 9.9 mg/dL (8.4-10.2); Carbon Dioxide 27 mmol/L (22-30); Chloride 106 mmol/L (98-107); Glucose 100 mg/dL (74-99); Magnesium 2.2 mg/dL (1.6-2.3); Non-African American GFR(CKD) 64 (>60 ml/min/1.73 sqM); Potassium 3.9 mmol/L (3.5-5.1); Sodium 139 mmol/L (137-145); Total Bilirubin 0.5 mg/dL (0.2-1.3); Total Protein 7.2 g/dL (6.3-8.2)
--- NOTE | 2024-05-12 16:23 | XR ---
EXAMINATION TYPE: XR chest 2V DATE OF EXAM: 05/12/2024 4:10 PM COMPARISON: Previous CT study 05/07/2024. CLINICAL INDICATION: Female, 73 years old with history of Weakness; [facility] TECHNIQUE: XR chest 2V Frontal and lateral views of the chest. FINDINGS: Lungs/Pleura: There is no evidence of pleural effusion, focal consolidation, or pneumothorax. Pulmonary vascularity: Unremarkable. Heart/mediastinum: Cardiomediastinal silhouette is unremarkable. Musculoskeletal: No acute osseous pathology. Other findings: None IMPRESSION: No acute cardiopulmonary disease/process. [facility], , 05/12/2024 4:21 PM
[2024-05-12 17:58] LABS: Appearance,Urine Cloudy (Clear); Bacteria,Urine Occasional /hpf; Bilirubin,Urine Negative (Negative); Blood,Urine Negative (Negative); Color,Urine Yellow; Glucose,Urine (UA) Negative (Negative); Ketones,Urine Negative (Negative); Leukocyte Esterase,Urine Large (Negative); Mucus,Urine Many /hpf; Nitrite,Urine Negative (Negative); Protein,Urine 1+ (Negative); RBC,Urine 8 /hpf (0-5); Specific Gravity,Urine 1.033 (1.001-1.035); Squamous Epithelial Cell,Urine 35 /hpf (0-4); WBC,Urine 163 /hpf (0-5)
[2024-05-12 18:23] LABS: T4, Free (Free Thyroxine) 1.33 ng/dL (0.78-2.19)
[2024-05-12 18:50] VITALS: BP 125/87; PULSE 73; RESP 18
[2024-05-12] MEDS: MAGNESIUM SULFATE-D5W PMX 1 GM in DEXTROSE/WATER 1 100ML.BAG IVPB SCH (18:55)
[2024-05-12] MEDS: SODIUM CHLORIDE 0.9% 500 ML 500 ML IV ONE (18:55)
== END 2024-05-12 19:03 | disposition home or self-care (01) ==
LOC: EC 15:10
DX: R07.89 Other chest pain (principal); E86.0 Dehydration; E03.9 Hypothyroidism, unspecified
CPT/HCPCS: 36415; 93005; 84439; 80053; 84443; 83735; 85025; 85610; 85730; 81001; 87086; 71046; 99285; 96374; J1885

== ENCOUNTER 2024-05-14 03:24 | Emergency (ER) | payer MEDICARE ==
[2024-05-14 03:57] LABS: Basophils # (A) 0.1 k/uL (0-0.2); Basophils % (A) 1 %; Eosinophils # (A) 0.3 k/uL (0-0.7); Eosinophils % (A) 3 %; Lymphocytes # (A) 1.7 k/uL (1.0-4.8); Lymphocytes % (A) 17 %; MCH 31.5 pg (25.0-35.0); MCHC 32.6 g/dL (31.0-37.0); MCV 96.8 fL (80.0-100.0); Mean Platelet Volume 7.4; Monocytes # (A) 0.6 k/uL (0-1.0); Monocytes % (A) 6 %; Neutrophils # (A) 7.4 k/uL (1.3-7.7); Neutrophils % (A) 72 %; Platelet Count 286 k/uL (150-450); RBC 4.44 m/uL (3.80-5.40); RDW 13.5 % (11.5-15.5); WBC 10.3 k/uL (3.8-10.6)
[2024-05-14 04:16] LABS: Amylase 72 U/L (30-110); Lipase 224 U/L (23-300)
[2024-05-14 04:17] LABS: ALT 35 U/L (4-34); African American GFR (CKD) 85 (>60 ml/min/1.73 sqM); Albumin 4.6 g/dL (3.5-5.0); Anion Gap 8 mmol/L; Blood Urea Nitrogen 28 mg/dL (7-17); Calcium 9.7 mg/dL (8.4-10.2); Carbon Dioxide 24 mmol/L (22-30); Chloride 107 mmol/L (98-107); Glucose 136 mg/dL (74-99); Non-African American GFR(CKD) 74 (>60 ml/min/1.73 sqM); Sodium 139 mmol/L (137-145); Total Bilirubin 0.6 mg/dL (0.2-1.3)
[2024-05-14 04:23] LABS: AST 32 U/L (14-36); Alkaline Phosphatase 72 U/L (38-126); Potassium 5.2 mmol/L (3.5-5.1)
[2024-05-14] MEDS: ASPIRIN 81 MG PO STA (04:23)
[2024-05-14] MEDS: ONDANSETRON 4 MG/2 ML VIAL IVP STA (04:23)
[2024-05-14] MEDS: PANTOPRAZOLE 40 MG/10 ML VIAL IVP STA (04:23)
[2024-05-14] MEDS: FAMOTIDINE 20 MG/2 ML VIAL IV STA (04:23)
[2024-05-14] MEDS: SODIUM CHLORIDE 0.9% 1,000 ML IV STA (04:23)
--- NOTE | 2024-05-14 04:28 | ED ---
General Adult HPI <AidanDevendra Juan R - Last Filed: 05/14/24 10:01> - General Source: patient, EMS Mode of arrival: EMS Limitations: no limitations <Myra - Last Filed: 05/16/24 16:56> - General Chief complaint: Nausea/Vomiting/Diarrhea Stated complaint: NVD Time Seen by Provider: 05/14/24 03:52 - History of Present Illness Initial comments: This is a pleasant 73-year-old female with past medical history of breast cancer, about to start radiation and retention, hyperlipidemia, GERD presenting today for nausea and vomiting. The patient states that she was admitted on 05/07/2024 for indigestion and chest pain and had a cardiac cath done during that admission that did not show any blockages and she did not receive any cardiac stents. States that this had not happened previously back in 2010 as well. Since that admission she has had persistent indigestion. She presented here this past Tuesday for indigestion, and ultimately discharged home. This evening at midnight patient began having nausea and had 2 episodes of nonbloody nonbilious emesis. She began feeling lightheaded so called EMS. She was given Zofran by EMS and her symptoms have improved. She currently denies any chest pain or shortness of breath, denies any fevers or chills, sore throat, runny nose, cough or hemoptysis, no lower extremity swelling, no abdominal pain, dysuria, urinary frequency. No prior abdominal surgeries. States her stomach does feel upset, last bowel movement was 2 days ago and was loose but nonbloody, nonmelanotic. Additionally over the last 2 days has had persistent dyspepsia. (Myra Bonilla) - Related Data Home Medications Medication Instructions Recorded Confirmed Aspirin [Adult Low Dose Aspirin EC] 81 mg PO DAILY 04/12/16 05/12/24 valACYclovir HCL [Valtrex] 500 mg PO DAILY 04/12/16 05/12/24 lisinopriL [Zestril] 5 mg PO HS 03/31/18 05/12/24 Vitamin C/Biotin [Hair, Skin and 1 tab PO DAILY 11/13/18 05/12/24 Nails Chew] Calcium Carbonate [Calcium] 600 mg PO HS 05/07/24 05/12/24 Cholecalciferol [Vitamin D3 (25 25 mcg PO DAILY 05/07/24 05/12/24 Mcg = 1000 Iu)] Escitalopram [Lexapro] 5 mg PO Q2D@209905/07/24 05/12/24 [place]-3/Dha/Epa/Fish Oil [Fish Oil 1 cap PO HS 05/07/24 05/12/24 1,000 mg Softgel] Rosuvastatin [Crestor] 10 mg PO Q2D@2100 05/07/24 05/12/24 Previous Rx's Medication Instructions Recorded Metoprolol Succinate (ER) [Toprol 12.5 mg PO DAILY 30 Days #30 tab 05/09/24 XL] Allergies Allergy/AdvReac Type Severity Reaction Status Date / Time No Known Allergies Allergy Verified 05/14/24 03:36 Review of Systems ROS Other: All systems not noted in ROS Statement are negative. <Devendra Bermudez - Last Filed: 05/14/24 10:01> ROS Other: All systems not noted in ROS Statement are negative. <Myra Bonilla - Last Filed: 05/16/24 16:56> ROS Statement: Those systems with pertinent positive or pertinent negative responses have been documented in the HPI. Past Medical History Past Medical History: Cancer, GERD/Reflux, Hyperlipidemia, Hypertension, Myocardial Infarction (NC), Osteoarthritis (OA), Pneumonia, Thyroid Disorder Additional Past Medical History / Comment(s): Hx of HSV, ischemic neuropathy of left eye, ischemic stroke right eye, thyroid nodules. "Minor heart attacks, vasospasms 2008 and 2010." Small aortic aneurysym, checked 1 month ago and stable. Hx Pneumonia. Breast CA- starting radiation April 2024. Last Myocardial Infarction Date:: 2010 History of Any Multi-Drug Resistant Organisms: None Reported Past Surgical History: Adenoidectomy, Heart Catheterization, Tonsillectomy Additional Past Surgical History / Comment(s): COLONOSCOPY, thyroid biopsy, right knee miniscus repair Past Anesthesia/Blood Transfusion Reactions: No Reported Reaction Additional Past Anesthesia/Blood Transfusion Reaction / Comment(s): no past blood transfusion Past Psychological History: Depression Smoking Status: Never smoker Past Alcohol Use History: Occasional Past Drug Use History: None Reported - Past Family History Mother Family Medical History: Unable to Obtain Additional Family Medical History / Comment(s): ADOPTED <Myra Bonilla - Last Filed: 05/16/24 16:56> General Exam Limitations: no limitations <Myra Bonilla - Last Filed: 05/16/24 16:56> - General Exam Comments Initial Comments: PE: CONSTITUTIONAL: No apparent distress, well appearing SKIN: Warm, dry, no jaundice, hives or petechiae EYES: Pupils are equally round, extraocular movements intact without nystagmus, clear conjunctiva, non-icteric sclera HENT: Normocephalic, atraumatic, moist mucus membranes, oropharynx clear without exudates NECK: , Full range of motion, normal appearance PULMONARY: Clear to auscultation without wheezes, rhonchi, or rales, normal excursion, no accessory muscle use and no stridor CARDIOVASCULAR: Regular rate, rhythm, normal S1 and S2. No appreciated murmurs, rubs or gallops. Strong radial pulses with intact distal perfusion. No lower extremity edema GASTROINTESTINAL: Soft, active bowel sounds throughout, non-tender, non- distended, no palpable masses, no rebound or guarding. No hepatosplenomegaly GENITOURINARY: MUSCULOSKELETAL: Extremities have no gross deformity, no edema, redness, or swelling. No calf swelling NEUROLOGIC:_a/o x 3, GCS 15, normal mentation and speech. Moves all extremities x 4 without motor or sensory deficit PSYCHIATRIC:_normal mood and affect, thought process is clear and linear (Myra Bonilla) Course Vital Signs 05/14/24 05/14/24 05/14/24 03:31 09:24 10:14 Temperature 97.5 F L 97.9 F 98.4 F Pulse Rate 68 91 71 Respiratory 16 18 18 Rate Blood Pressure 97/67 137/78 106/70 O2 Sat by Pulse 96 99 96 Oximetry EKG Findings - EKG Comments: EKG Findings:: Sinus rhythm, rate 71 bpm, WV interval 175 ms, QRS duration 89 ms, QT/QTc 393/400 416 ms, borderline left axis deviation, no ST elevations or depressions, compared to EKG performed on 05/12/2024, today's EKG shows no significant changes from prior, no new ST elevations or depressions, no arrhythmia <Myra Bonilla - Last Filed: 05/16/24 16:56> Medical Decision Making - Lab Data Result diagrams: 05/14/24 03:47 05/14/24 08:52 <Devendra Bermudez - Last Filed: 05/14/24 10:01> - Lab Data Result diagrams: 05/14/24 03:47 05/14/24 08:52 <Myra Bonilla - Last Filed: 05/16/24 16:56> - Medical Decision Making Patient care signed out to me pending repeat potassium level. Potassium repeated found to be 5.0 reevaluated bedside at 10:00 and finally stable mental condition. Patient states she is feeling a lot better and is agreeable to discharge. (Devendra Bermudez) Was pt. sent in by a medical professional or institution (, PA, CYBER SECURITY MANAGER, urgent care, hospital, or skilled nursing...) When possible be specific @ -No Did you speak to anyone other than the patient for history (EMS, parent, family, police, friend...)? What history was obtained from this source @ -No Did you review nursing and triage notes (agree or disagree)? Why? @ -I reviewed and agree with nursing and triage notes Were old charts reviewed (outside hosp., previous admission, EMS record, old EKG, old radiological studies, urgent care reports/EKG's, skilled nursing records)? Report findings @ -Medical records reviewed, patient admitted on 05/07/2024, had cardiac cath performed, reviewed cardiac cath note From 05/09/2024 ultimately noted to have "noncritical CAD", no occlussions. Additionally CTA chest performed on 05/07/2024 showed limited exam for PE but no central PE Differential Diagnosis (chest pain, altered mental status, abdominal pain women, abdominal pain men, vaginal bleeding, weakness, fever, dyspnea, syncope, headache, dizziness, GI bleed, back pain, seizure, CVA, palpatations, mental health, musculoskeletal)? @Differential diagnose remains broad over top considerations include gastritis, peptic ulcer disease, ACS, pancreatitis cholecystitis, choledocholithiasis, cholangitis, bowel obstruction, viral infection, gastroenteritis, this is not all-inclusive list EKG interpreted by me (3pts min.). @ -As above X-rays interpreted by me (1pt min.). @ -None done CT interpreted by me (1pt min.). @ -None done U/S interpreted by me (1pt. min.). @ -None done What testing was considered but not performed or refused? (CT, X-rays, U/S, labs)? Why? @I did consider a chest x-ray however patient platelet declined this stating that she is recently had multiple sets of imaging of her chest and does not feel like her current discomfort is in her chest, considered CT abdomen pelvis however patient has a benign abdominal exam, soft abdomen with active bowel sounds, nontender without rebound or guarding What meds were considered but not given or refused? Why? @ -None Did you discuss the management of the patient with other professionals (professionals i.e. Dr., PA, CYBER SECURITY MANAGER, lab, RT, psych nurse, renal social worker, boomswing operator, teacher, transportation security officer, bilingual case manager)? Give summary @ -No Was smoking cessation discussed for >3mins.? @ -No Was critical care preformed (if so, how long)? @ -No Were there social determinants of health that impacted care today? How? (Homelessness, low income, unemployed, alcoholism, drug addiction, transportation, low edu. Level, literacy, decrease access to med. care, shelter, rehab)? @ -No Was there de-escalation of care discussed even if they declined (Discuss DNR or withdrawal of care, Hospice)? @ -No What co-morbidities impacted this encounter? (DM, HTN, Smoking, COPD, CAD, Cancer, CVA, ARF, Chemo, Hep., AIDS, mental health diagnosis, sleep apnea, morbid obesity)? Hypertension, hyperlipidemia, Was patient admitted / discharged? Hospital course, mention meds given and route, prescriptions, significant lab abnormalities, going to OR and other pertinent info. @Patient signed out to oncoming physician, Dr. Ricardo pending repeat potassium check This is a pleasant 73-year-old female presenting today for 2 episodes of nonbloody nonbilious emesis prior to arrival. Patient well-appearing on my assessment, Blood pressure on arrival 97/67, MAP 77 no tachycardia, no hypoxia, overall,vital signs within acceptable limits. Patient was seen and assessed in the waiting room due to no beds available in the main emergency department and she was agreeable with providing history and undergoing physical exam in the waiting room. Given patient's recent were reassuring workups, low suspicion that patient's vomiting is secondary to ACS will obtain troponin, EKG appears stable from prior, I discussed with patient obtaining a chest x-ray given consideration of ACS, however patient states she has had multiple recent chest x-rays and a CT of her chest done and does not feel that her symptoms are secondary to intrathoracic abnormality and she is no pulmonary symptoms with a reassuring pulm cardiopulmonary exam, she requests to for go chest x-ray at this time. I feel this is reasonable. Will obtain basic labs, lipase amylase CBC CMP troponin, give IV fluids for nausea and vomiting control and reassess. Patient able to tolerate PO intake on reassessment. K slightly hemolyzed at 5.2, so will redraw and if wnl, plan for discharge. Updated pt to these findings and plan of care, she is agreebale and comfortable with plan. Pt signed out to oncoming physician, Dr Pacheco, pending repeat K. Undiagnosed new problem with uncertain prognosis? @ -No Drug Therapy requiring intensive monitoring for toxicity (Heparin, Nitro, Insulin, Cardizem)? @ -No Were any procedures done? @ -No Diagnosis/symptom? @ -Nausea and vomiting Acute, or Chronic, or Acute on Chronic? @ -Acute Uncomplicated (without systemic symptoms) or Complicated (systemic symptoms)? @Complicated Side effects of treatment? @ -No Exacerbation, Progression, or Severe Exacerbation? @ -No Poses a threat to life or bodily function? How? (Chest pain, USA, NC, pneumonia, PE, COPD, DKA, ARF, appy, cholecystitis, CVA, Diverticulitis, Homicidal, Suicidal, threat to staff... and all critical care pts) @ -No (,Myra) - Lab Data Lab Results 05/14/24 05/14/24 05/14/24 Range/Units 03:40 03:40 03:47 WBC 10.3 (3.8-10.6) k/uL RBC 4.44 (3.80-5.40) m/uL Hgb 14.0 (11.4-16.0) gm/dL Hct 43.0 (34.0-46.0) % MCV 96.8 (80.0-100.0) fL MCH 31.5 (25.0-35.0) pg MCHC 32.6 (31.0-37.0) g/dL RDW 13.5 (11.5-15.5) % Plt Count 286 (150-450) k/uL MPV 7.4 Neutrophils % 72 % Lymphocytes % 17 % Monocytes % 6 % Eosinophils % 3 % Basophils % 1 % Neutrophils # 7.4 (1.3-7.7) k/uL Lymphocytes # 1.7 (1.0-4.8) k/uL Monocytes # 0.6 (0-1.0) k/uL Eosinophils # 0.3 (0-0.7) k/uL Basophils # 0.1 (0-0.2) k/uL APTT 22.9 (22.0-30.0) sec Sodium (137-145) mmol/L Potassium (3.5-5.1) mmol/L Chloride (98-107) mmol/L Carbon Dioxide (22-30) mmol/L Anion Gap mmol/L BUN (7-17) mg/dL Creatinine (0.52-1.04) mg/dL Est GFR (CKD-EPI)AfAm (>60 ml/min/1.73 sqM) Est GFR (CKD-EPI)NonAf (>60 ml/min/1.73 sqM) Glucose (74-99) mg/dL Plasma Lactic Acid Demarco (0.7-2.0) mmol/L Calcium (8.4-10.2) mg/dL Total Bilirubin (0.2-1.3) mg/dL AST (14-36) U/L ALT (4-34) U/L Alkaline Phosphatase (38-126) U/L Troponin I <0.012 (0.000-0.034) ng/mL Total Protein (6.3-8.2) g/dL Albumin (3.5-5.0) g/dL Amylase (30-110) U/L Lipase (23-300) U/L 05/14/24 05/14/24 05/14/24 Range/Units 03:47 03:47 03:57 WBC (3.8-10.6) k/uL RBC (3.80-5.40) m/uL Hgb (11.4-16.0) gm/dL Hct (34.0-46.0) % MCV (80.0-100.0) fL MCH (25.0-35.0) pg MCHC (31.0-37.0) g/dL RDW (11.5-15.5) % Plt Count (150-450) k/uL MPV Neutrophils % % Lymphocytes % % Monocytes % % Eosinophils % % Basophils % % Neutrophils # (1.3-7.7) k/uL Lymphocytes # (1.0-4.8) k/uL Monocytes # (0-1.0) k/uL Eosinophils # (0-0.7) k/uL Basophils # (0-0.2) k/uL APTT (22.0-30.0) sec Sodium 139 (137-145) mmol/L Potassium 5.2 H (3.5-5.1) mmol/L Chloride 107 (98-107) mmol/L Carbon Dioxide 24 (22-30) mmol/L Anion Gap 8 mmol/L BUN 28 H (7-17) mg/dL Creatinine 0.81 (0.52-1.04) mg/dL Est GFR (CKD-EPI)AfAm 85 (>60 ml/min/1.73 sqM) Est GFR (CKD-EPI)NonAf 74 (>60 ml/min/1.73 sqM) Glucose 136 H (74-99) mg/dL Plasma Lactic Acid Demarco 1.0 (0.7-2.0) mmol/L Calcium 9.7 (8.4-10.2) mg/dL Total Bilirubin 0.6 (0.2-1.3) mg/dL AST 32 (14-36) U/L ALT 35 H (4-34) U/L Alkaline Phosphatase 72 (38-126) U/L Troponin I (0.000-0.034) ng/mL Total Protein 7.0 (6.3-8.2) g/dL Albumin 4.6 (3.5-5.0) g/dL Amylase 72 (30-110) U/L Lipase 224 (23-300) U/L 05/14/24 Range/Units 08:52 WBC (3.8-10.6) k/uL RBC (3.80-5.40) m/uL Hgb (11.4-16.0) gm/dL Hct (34.0-46.0) % MCV (80.0-100.0) fL MCH (25.0-35.0) pg MCHC (31.0-37.0) g/dL RDW (11.5-15.5) % Plt Count (150-450) k/uL MPV Neutrophils % % Lymphocytes % % Monocytes % % Eosinophils % % Basophils % % Neutrophils # (1.3-7.7) k/uL Lymphocytes # (1.0-4.8) k/uL Monocytes # (0-1.0) k/uL Eosinophils # (0-0.7) k/uL Basophils # (0-0.2) k/uL APTT (22.0-30.0) sec Sodium (137-145) mmol/L Potassium 5.0 (3.5-5.1) mmol/L Chloride (98-107) mmol/L Carbon Dioxide (22-30) mmol/L Anion Gap mmol/L BUN (7-17) mg/dL Creatinine (0.52-1.04) mg/dL Est GFR (CKD-EPI)AfAm (>60 ml/min/1.73 sqM) Est GFR (CKD-EPI)NonAf (>60 ml/min/1.73 sqM) Glucose (74-99) mg/dL Plasma Lactic Acid Demarco (0.7-2.0) mmol/L Calcium (8.4-10.2) mg/dL Total Bilirubin (0.2-1.3) mg/dL AST (14-36) U/L ALT (4-34) U/L Alkaline Phosphatase (38-126) U/L Troponin I (0.000-0.034) ng/mL Total Protein (6.3-8.2) g/dL Albumin (3.5-5.0) g/dL Amylase (30-110) U/L Lipase (23-300) U/L Disposition <Devendra Bermudez - Last Filed: 05/14/24 10:01> Is patient prescribed a controlled substance at d/c from ED?: No <Myra Bonilla - Last Filed: 05/16/24 16:56> Clinical Impression: Nausea and vomiting Disposition: HOME SELF-CARE Condition: Good Instructions (If sedation given, give patient instructions): Acute Nausea and Vomiting (ED), Acute Diarrhea (ED) Additional Instructions: Every disease is a spectrum and a small chance still exists that a serious cond ition could develop, for this reason, please monitor yourself closely for new, changing or worsening symptoms, symptoms that persist beyond 48 hours, chest pain, new abdominal pain, vomiting blood or bright green color, lightheadedness or dizziness fever, inability to tolerate/keep down fluids or your medications, inability to follow up with outpatient providers as instructed and should you experience these symptoms or should you have any further concerns for your wellbeing please return to the ED or call 911 immediately. Please drink plenty of fluids. Maintain a clear liquid diet for the next 24 hours and you may progress to diet as tolerated after this. PLEASE call your primary care physician as soon as possible to arrange / discuss plan for followup appointment. Appointment in the next 1-3 days is strongly encouraged if possible. PLEASE let us know here before you leave if there is anything further we can do to be of any assistance. Take care and feel Better! Referrals: Adela Smith MD [Primary Care Provider] - 1-2 days
[2024-05-14] MEDS: MAG HYDROX/AL HYDROX/SIMETH 30 ML, HYOSCYAMINE ELIXIR 10 ML, LIDOCAINE VISCOUS 2% 10 ML PO STA (04:51)
[2024-05-14] MEDS: ONDANSETRON 4 MG ODT STARTER PACK 2 TAB BTL PO STA (09:22)
[2024-05-14 09:27] VITALS: RESP 18
[2024-05-14 10:23] VITALS: BP 106/70; PULSE 71; TEMP 98.4
== END 2024-05-14 11:01 | disposition home or self-care (01) ==
LOC: EC 03:24
DX: R11.2 Nausea with vomiting, unspecified (principal); E78.5 Hyperlipidemia, unspecified; I10 Essential (primary) hypertension; Z86.73 Personal history of transient ischemic attack (TIA), and cerebral infarction without residual deficits
CPT/HCPCS: 36415; 93005; 80053; 82150; 83605; 83690; 84132; 84484; 85025; 85730; 99284; 96374; 96375; 96361; J2405; J3490; S0119; J2470

== ENCOUNTER 2024-09-20 07:39 | Day surgery (SDC) | payer MEDICARE ==
--- NOTE | 2024-09-19 22:07 | HP ---
HISTORY AND PHYSICAL DATE OF SURGERY: 09/20/2024. HISTORY OF PRESENT ILLNESS: Ciara Matthew is a 73-year-old patient seen with progressive right shoulder pain. We discussed options. She elected to proceed with arthroscopy. Consent was obtained. Cardiac clearance was provided by Dr. Go. PAST MEDICAL HISTORY: Cardiovascular disease, hypertension, hyperlipidemia. SURGICAL HISTORY: Sinus surgery, tonsillectomy. DAILY MEDICATIONS: 1. Aspirin. 2. Valtrex. 3. Cymbalta. ALLERGIES: None. SOCIAL HISTORY: She denies tobacco use. PHYSICAL EVALUATION OF THE RIGHT SHOULDER: Flexion is 120 degrees. Abduction is 80 degrees. External rotation is 30 degrees with weakness, tenderness along the anterolateral acromion, rotator cuff tendon, acromioclavicular joint osteoarthritis. Impingement is positive at 80 degrees. Drop- arm sign is positive. Distal neurovascular exam is intact. IMAGING STUDIES: Radiographs of right shoulder, type 2 acromion, acromioclavicular joint osteoarthritis. MRI of right shoulder, rotator cuff tendon tear, adhesive capsulitis, biceps tenosynovitis, acromioclavicular joint osteoarthritis. IMPRESSION: 1. Right shoulder impingement with rotator cuff tear. 2. Right shoulder acromioclavicular joint osteoarthritis. 3. Right shoulder adhesive capsulitis. PLAN: Right shoulder arthroscopy with subacromial decompression, arthroscopic rotator cuff repair with lysis of adhesions, possible Phillip procedure and debridement. MMODL / IJN: [id number] /
[~2024-09-20 07:39] MED LIST changes: -DEXAMETHASONE SOD PHOSPHATE 10 MG/ML 1 ML VIAL IV ONE; +HYDROmorphone 0.5 MG/0.5 ML SYRINGE IVP PRN; -LACTATED RINGERS 1,000 ML IV SCH; +LIDOCAINE 1% (10MG/ML) FOR IV START INTRADERMA PRN; -MIDAZOLAM 2 MG/2 ML VIAL IV PRN; -ONDANSETRON 4 MG/2 ML VIAL IVP ONE; -ceFAZolin IN SWFI 2 GM/20 ML SYRINGE IVP ONE; +fentaNYL (PF) 50 MCG/ML 2 ML AMP IVP PRN
[2024-09-20] MEDS: DEXAMETHASONE SOD PHOSPHATE 4 MG/ML 1 ML VIAL IV ONE (08:27)
[2024-09-20] MEDS: ONDANSETRON 4 MG/2 ML VIAL IVP ONE (08:27)
[2024-09-20] MEDS: LACTATED RINGERS 1,000 ML IV SCH (08:27)
[2024-09-20] MEDS: MIDAZOLAM 2 MG/2 ML VIAL IV PRN (08:45)
[2024-09-20] MEDS: IV FLUID CONTINUATION 1,000 ML IV ONE ×2 (09:00→11:35)
[2024-09-20] MEDS ORDERED: fentaNYL (PF) 50 MCG/ML 2 ML AMP ONE (09:01)
[2024-09-20] MEDS ORDERED: KETOROLAC 15 MG/ML 1 ML VIAL ONE (09:01)
[2024-09-20] MEDS ORDERED: PROPOFOL 10 MG/ML 20 ML VIAL IV ONE (09:01)
[2024-09-20] MEDS ORDERED: DEXAMETHASONE SOD PHOSPHATE 4 MG/ML 1 ML VIAL ONE (09:01)
[2024-09-20] MEDS ORDERED: ROPIVACAINE 5 MG/ML 30 ML VIAL ONE (09:01)
[2024-09-20] MEDS ORDERED: SUCCINYLCHOLINE CHLORIDE 200 MG/10 ML VIAL IV ONE (09:01)
[2024-09-20] MEDS ORDERED: LIDOCAINE 1% INJ 10MG/ML (20 ML MDV) ONE (09:01)
[2024-09-20] MEDS: ceFAZolin 2 GM in DEXTROSE 5% IN WATER 50 ML IVPB PRN (09:04)
[2024-09-20 10:54] VITALS: TEMP 96.8
--- NOTE | 2024-09-20 10:58 | P.OP ---
Date of Procedure: 09/20/24 Preoperative Diagnosis: Right shoulder impingement Postoperative Diagnosis: 1. Right shoulder rotator cuff tear 2. Right shoulder impingement 3. Right shoulder biceps tenosynovitis 4. Right shoulder acromioclavicular joint osteoarthritis 5. Right shoulder superficial labral tear Procedure(s) Performed: 1. Right shoulder arthroscopic rotator cuff repair 2. Right shoulder arthroscopic subacromial decompression 3. Right shoulder arthroscopic biceps tenodesis 4. Right shoulder arthroscopic Phillip procedure 5. Right shoulder arthroscopic debridement superior labral tear Implants: 1Arthrex 5.5 swivel lock anchor 1Arthrex 4.75 swivel lock anchor Anesthesia: GETA, regional (Interscalene block) Surgeon: Robles Wilkinson Property Claims Adjuster #1: Albino Gaona Estimated Blood Loss (ml): 7 Pathology: none sent Condition: stable Disposition: PACU Indications for Procedure: 73-year-old patient seen with progressive right shoulder pain. After having treatment options discussed, she elected to proceed with arthroscopy. Operative Findings: See description of procedure Description of Procedure: Patient underwent an interscalene block by department of anesthesia. The p atient was then taken to the operative suite. The patient underwent a general anesthetic by the department of anesthesia. The patient was placed into a lateral position and secured. There was appropriate padding of the bony prominence. Right shoulder was then prepped and draped in normal sterile orthopedic fashion. We placed the extremity in 10 pounds of longitudinal traction. A posterior incision was now made for a posterior working portal site. The trocar and cannula were inserted into the glenohumeral joint. Arthroscopy was initiated. Spinal needle was now inserted anteriorly, to ascertain the anterior working portal site. An incision was now made in that area, a trocar was inserted followed by a probe. There was hyperemia and partial tearing long head biceps tendon. There was superficial tearing of the superior labrum. There were mild grade I chondromalacia changes of the glenohumeral joint without tears. I reduced a motorized shaver and debrided that superficial labral tear getting down to stable labral tissue. I placed a cannula through the anterior portal site. I passed a loop and tack stitch to the biceps tendon and then released it from the superior labral anchor. With the assistance of Moe GLEZ I punched a hole at the interval for insertion of an anchor. The suture line was passed through the eyelet of an Arthrex 4.75 swivel lock anchor. I placed the eyelet into the prepunch hole, held in position while Moe GLEZ tensioned the suture and deployed the anchor with good fixation noted. The residual suture line was clipped. We had a stable appearing biceps tenodesis. Instruments were now removed from the glenohumeral joint. Utilizing the posterior working portal site, the trocar and cannula were inserted into the subacromial space. Arthroscopy initiated. I made an incision 2 fingerbreadths lateral to the acromion. I introduced my trocar followed by my ArthroCare ablator. I now began ablating thick subacromial bursal tissue, which exposed the undersurface of the anterior acromion. There was diminished subacromial space. There was a very prominent anterior acromion. A motorized bur was introduced and a subacromial decompression was performed. I also excised some osteophytes off the inferior aspect of the distal clavicle. The AC joint was visualized and noted to be fairly arthritic. The motorized bur was introduced in the anterior portal site and a Phillip procedure was performed without difficulty, decompressing the AC joint nicely. I turned my attention to the rotator cuff. There was a 1.5 cm rotator cuff tear. I debrided the margins getting down to stable tendon tissue. I abraded the footprint with a motorized bur. With the assistance of Moe GLEZ I now passed 3 everted mattress sutures through good bites of rotator cuff tendon. I punched a hole at the footprint area for insertion of an anchor. All 6 limbs of suture were passed through the eyelet of an Arthrex 5.5 swivel lock anchor. I placed the eyelet into the prepunch hole. I held it in position while Moe GLEZ tensioned the sutures and deployed the anchor with good fixation noted. All residual suture limbs were clipped. We had good compression of the tendon along the entire footprint. Instruments now removed from the portal sites. All portal sites were approximated with nylon suture. Sterile dressings were applied followed by a shoulder sling. Albino GLEZ assisted in this complex case. The patient was awakened, transferred to a bed, and taken to recovery in stable condition.
[2024-09-20 11:07] VITALS: RESP 16
[2024-09-20 12:59] VITALS: BP 115/76; PULSE 62
--- NOTE | 2024-09-21 07:21 | P.ANPRN ---
Procedure Note - Anesthesia - Nerve Block Performed Right Interscalene Single Time Out Performed: Yes Date of Procedure: 09/20/24 Procedure Start Time: 08:44 Procedure Stop Time: 08:49 Location of Patient: PreOp Indication: Acute Post-Operative Pain, Requested by Surgeon Sedation Type: Sedate with meaningful contact maintained Preparation: Sterile Prep Position: Supine Needle Types: Pajunk Needle Gauge: 21 Ultrasound used to visualize needle placement: Yes Ultrasound used to observe medication spread: Yes Blood Aspirated: No Pain Paresthesia on Injection Noted: No Resistance on Injection: Normal Image Stored and Saved: Yes Events: Uneventful and Well Tolerated (Ropivacaine .5% 20 cc plus dexamethasone 4 mg)
== END 2024-09-20 13:04 | disposition home or self-care (01) ==
LOC: OR 07:39
PROVIDERS: ATTEND Orthopaedic Surgery
DX: M19.011 Primary osteoarthritis, right shoulder (principal); M75.01 Adhesive capsulitis of right shoulder; M75.41 Impingement syndrome of right shoulder; M75.101 Unspecified rotator cuff tear or rupture of right shoulder, not specified as traumatic; M65.911 Unspecified synovitis and tenosynovitis, right shoulder; I25.10 Atherosclerotic heart disease of native coronary artery without angina pectoris; I10 Essential (primary) hypertension; E78.5 Hyperlipidemia, unspecified; G89.18 Other acute postprocedural pain; E07.9 Disorder of thyroid, unspecified; Z79.82 Long term (current) use of aspirin; Z79.899 Other long term (current) drug therapy
CPT/HCPCS: 64415; 29824; 29826; 29827; 29828; C1713 ×3; J2250; J0330; J1100; J0690; J2405; J2003; J3010; J2795; J1885; J2704

== ENCOUNTER → 2024-11-23 | Outpatient (CLI) | payer MEDICARE ==
--- NOTE | 2024-12-05 07:25 | MM ---
Reason for Exam: Clinical finding. Last screening mammogram was performed 10 month(s) ago. Indicated Problems: Other indicated problem of the right side. Patient History: Menarche at age 15. First Full-Term at age 24. Postmenopausal. Breast cancer, right, age 73. Previous chest radiation therapy at age 73. 01/12/2024, Malignant US biopsy breast VAD RT on the right side. 02/24/2024, Lumpectomy on the Right side. 02/24/2024, Malignant MG pre op needle loc RT on the right side. Prior Study Comparison: 04/10/2018 Screening Mammogram, [facility]. 05/07/2019 Screening Mammogram, [facility]. 07/18/2020 Bilateral Screening Mammogram, [facility]. 11/18/2022 Bilateral Screening Mammogram, [facility]. 11/29/2023 Bilateral Screening Mammogram, [facility]. 12/08/2023 Right Diagnostic Mammogram, [facility]. 01/05/2024 Right Diagnostic Mammogram, [facility]. Tissue Density: There are scattered areas of fibroglandular density. Findings: Analyzed By CAD. There are new surgical clips and distortion upper outer aspect right breast presumed changes. Stable 5 mm circumscribed round mass in the middle depth right breast. No suspicious new mass or distortion in the left breast. Overall Assessment: Probably benign, BI-RAD 3 Management: Diagnostic Mammogram of the right breast in 6 months. Short-term diagnostic follow-up right breast to establish new baseline after treatment. Results were given to the patient verbally at the time of exam. Patient should continue monthly self-breast exams. A clinical breast exam by your physician is recommended on an annual basis. This exam should not preclude additional follow-up of suspicious palpable abnormalities. Note on Cori scores and lifetime risk: 1. A Cori score greater than 3% is considered moderate risk. If this is the case, consider specialist referral to assess eligibility for a risk reducing agent. 2. If overall lifetime risk for the development of breast cancer is 20% or higher, the patient may qualify for future screening with alternating mammogram and breast MRI. [facility], , 12/05/2024 7:22 AM. Electronically signed and approved by: Bony Ahn M.D.
== END | disposition home or self-care (01) ==
LOC: RADMAMWWP 12:42
PROVIDERS: ATTEND Internal Medicine Medical Oncology
DX: C50.811 Malignant neoplasm of overlapping sites of right female breast (principal); R92.323 Mammographic fibroglandular density, bilateral breasts; Z78.0 Asymptomatic menopausal state
CPT/HCPCS: 77062; 77066